=== PATIENT | male | born 1960 | race Caucasian/White ===

== ENCOUNTER 2024-07-06 08:26 | Emergency (ER) | payer OTHER, BC, SELFPAY ==
[2024-07-06 08:42] VITALS: BP 158/99; PULSE 67; RESP 16; TEMP 36.6; O2SAT 98
[2024-07-06 08:44] VITALS: BP 158/99; PULSE 67; RESP 16; TEMP 36.6; O2SAT 98
--- NOTE | 2024-07-06 08:56 | ED.SKABFB ---
HPI - Skin/Abscess/Foreign Bdy General Chief complaint: Skin/Abscess/Foreign Body Stated complaint: INSECT BITE TO FOREHEAD/KNOT ON NECK Time Seen by Provider: 07/06/24 08:49 Source: patient and RN notes reviewed Mode of arrival: ambulatory Limitations: no limitations History of Present Illness HPI narrative: Patient presents today complaining of a possible insect bite to his right upper forehead that was sustained 5 days ago. This area has become more red and swollen. The swelling has extended to his right upper eyelid. His soreness has extended down his right lateral cheek. He is also noted a knot on his right neck. Related Data Home Medications Medication Instructions Recorded Confirmed amlodipine 10 mg tablet 10 mg PO DAILY 07/06/24 07/06/24 aspirin 81 mg chewable tablet 81 mg PO DAILY 07/06/24 07/06/24 lisinopril 40 mg tablet 40 mg PO DAILY 07/06/24 07/06/24 rosuvastatin 40 mg tablet 40 mg PO DAILY 07/06/24 07/06/24 sertraline 50 mg tablet 50 mg PO DAILY 07/06/24 07/06/24 Allergies Allergy/AdvReac Type Severity Reaction Status Date / Time No Known Drug Allergies Allergy Unknown Unverified 04/02/15 17:40 Review of Systems Review of Systems: CONSTITUTIONAL: Denies body aches, fever, chills, or sweats. EYES: Denies visual changes, redness, or discharge. ENT: Denies rhinorrhea, congestion, sore throat, or otalgia. CARDIOVASCULAR: Denies chest pain, palpitations, or edema. RESPIRATORY: Denies cough or dyspnea. GASTROINTESTINAL: Denies abdominal pain, nausea, vomiting, or diarrhea. GENITOURINARY: Denies dysuria or hematuria. SKIN: Insect bite MUSCULOSKELETAL: Denies back pain, joint pain, or myalgia. NEUROLOGIC: Denies headache, numbness, tingling, or weakness. PSYCH: Denies depression or anxiety. PMFSH Comments At time of signature, I have reviewed and agree with nursing past medical, surgical, social and family history unless otherwise noted. Please see nursing chart for further information. There is no relevant family history pertinent to the presenting complaint Exam Narrative: GENERAL: Well-appearing, well-nourished, and in no acute distress. HEAD: Normocephalic, atraumatic. 4x4 cm square area of moderate erythema and induration to the right upper forehead. No fluctuance. EYES: EOMI. No redness or drainage. Conjunctivae normal. Mild swelling to right upper eyelid. ENT: Mucous membranes pink and moist. Throat normal. Uvula midline. NECK: Normal AROM. Tender, palpable lymph node to right posterior cervical chain. CHEST: No respiratory distress. EXTREMITIES: Normal range of motion. No edema. SKIN: Warm, dry, no rash. Capillary refill normal. Normal skin turgor. NEURO: No focal deficits. Alert and oriented x3. Gait steady. PSYCH: Normal affect. No signs of depression or anxiety. Course Course Level of Care: Express Care Visit Vital Signs Vital signs: Vital Signs Temperature 97.8 F 07/06/24 08:42 Pulse Rate 67 07/06/24 08:42 Respiratory Rate 16 07/06/24 08:42 Blood Pressure 158/99 H 07/06/24 08:42 Pulse Oximetry 98 07/06/24 08:42 Temperature 97.8 F 07/06/24 08:44 Pulse Rate 67 07/06/24 08:44 Respiratory Rate 16 07/06/24 08:44 Blood Pressure 158/99 H 07/06/24 08:44 Pulse Oximetry 98 07/06/24 08:44 Reviewed MDM - Skin/Abscess/Foreign Bdy MDM Narrative Medical decision making narrative: Patient's symptoms are due to cellulitis due to insect bite. Patient will be placed on Keflex and prednisone. Anticipatory guidance given. Differential Diagnosis Differential diagnosis: Likely abscess of skin or subcutaneous tissue, cellulitis, insect bites, impetigo and contact dermatitis Critical Care Time Critical Care Time Critical Care Time: No Discharge Plan Discharge Clinical Impression: Cellulitis of forehead Insect bite Qualifiers: Encounter type: initial encounter Site of insect bite: head Site of insect bite of head: scalp Qualified Code
== END 2024-07-06 09:03 | disposition home or self-care (01) ==
PROVIDERS: Emergency Provider Nurse Practitioner; PCP Family Medicine
DX: L03.211 Cellulitis of face (principal); S00.06XA Insect bite (nonvenomous) of scalp, initial encounter; W57.XXXA Bitten or stung by nonvenomous insect and other nonvenomous arthropods, initial encounter; E78.00 Pure hypercholesterolemia, unspecified; I10 Essential (primary) hypertension; Z95.5 Presence of coronary angioplasty implant and graft
CPT/HCPCS: 99203; G0463

== ENCOUNTER 2024-10-02 12:27 | Emergency (ER) | payer BC, SELFPAY ==
[2024-10-02 12:59] VITALS: BP 160/84; PULSE 70; RESP 16; TEMP 36.6; O2SAT 100
--- NOTE | 2024-10-02 13:53 | ED.ABDPAIN ---
HPI - Abdominal Pain General Chief Complaint: Abdominal Pain Stated Complaint: Left Side Pain Source: patient Mode of arrival: ambulatory Limitations: no limitations History of Present Illness HPI narrative: Patient presents for evaluation of left inguinal and left lower quadrant pain. Symptom onset about ten days ago. His symptoms were preceded by respiratory symptoms including congestion and cough. Those symptoms resolved. He states he then noted intermittent pain in the left inguinal/LLQ region. Pain is more noticeable with ambulation and physical activity. He initially thought that he strained a muscle during a coughing episode however his pain has persisted. He describes the pain is sensation that he was kicked in the scrotum. He denies testicular pain per se. No urinary symptoms. He has experienced some abnormalities in bowel pattern. He has normal bowel pattern is once daily. He has experienced fecal urgency with decrease in the amount of stool with bowel movements. He has not noticed any blood/mucous in the stool, nausea, vomiting, diarrhea, fevers or chills. He has never had a colonoscopy. Related Data Home Medications ?Medication ?Instructions ?Recorded ?Confirmed ?Last Taken ?Type amlodipine 10 mg tablet 10 mg PO DAILY 07/06/24 07/06/24 Unknown History aspirin 81 mg chewable tablet 81 mg PO DAILY 07/06/24 07/06/24 Unknown History lisinopril 40 mg tablet 40 mg PO DAILY 07/06/24 07/06/24 Unknown History rosuvastatin 40 mg tablet 40 mg PO DAILY 07/06/24 07/06/24 Unknown History sertraline 50 mg tablet 50 mg PO DAILY 07/06/24 07/06/24 Unknown History Allergies Allergy/AdvReac Type Severity Reaction Status Date / Time No Known Drug Allergies Allergy Unknown Other Verified 10/02/24 13:12 Review of Systems Review of Systems: CONSTITUTIONAL: Denies fever, chills, or sweats. EYES: Denies visual changes, redness, or discharge. ENT: Denies rhinorrhea, congestion, sore throat, or otalgia. CARDIOVASCULAR: Denies chest pain, palpitations, or edema. RESPIRATORY: Denies cough or dyspnea. GASTROINTESTINAL: Reports left lower quadrant pain, fecal urgency and decreased amount of stool with bowel movements GENITOURINARY: Reports sensation that he was kicked in the scrotum. Denies dysuria or hematuria. SKIN: Denies rash or itching. MUSCULOSKELETAL: Reports pain in left inguinal region. NEUROLOGIC: Denies headache, numbness, dizziness, or weakness. PSYCHIATRIC: Denies anxiety or depression. [facility] Past Medical History Medical History No pertinent past medical history Surgical History Surgical History No pertinent past surgical history Family History Family History Mother Family history non-contributory Social History Social History Smoking status: Never smoker Substance use: never Living arrangements: with family Gender identity (if verbalized by the patient): Male Spiritual care concerns: No Exam Narrative: GENERAL: Well-appearing, well-nourished, and in no acute distress. HEAD: Normocephalic, atraumatic. EYES: PERRLA and EOMI. ENT: Nares clear, no rhinorrhea or epistaxis. Mucous membranes moist. Oropharynx without tonsillar hypertrophy exudate or other lesions. Bilateral TMs pearly torres nonbulging NECK: Supple. No adenopathy or masses. No carotid bruits or JVD CHEST: Clear to auscultation. No respiratory distress. No wheezes rales or rhonchi HEART: Regular rate and rhythm. No murmur heard. Normal peripheral pulses. ABDOMEN: Soft, nontender, nondistended, normal active bowel sounds. EXTREMITIES: Normal range of motion. No edema. GENITAL: No external genital lesions. No testicular tenderness SKIN: Warm, dry, no rash. NEURO: No focal deficits. Alert and oriented x3. PSYCH: Normal mood and affect. Course Course Emergency Course: This is a 64-year-old male who presented for evaluation of left inguinal pain in left lower quadrant pain. Given his recent abnormal bowel movements, one consideration would be for diverticulitis. He does not have any testicular tenderness on exam. I recommended he be transferred to the hospital for further workup and he is in agreement with this plan. [facility] is his facility [facility]. I contacted [facility] and spoke with Dr Cox, who agrees to accept pt for transfer there. Patient was in agreement with plan of care, including plans for transfer. Patient transferred via private vehicle. Level of Care: Express Care Visit Vital Signs Vital signs: Vital Signs Temperature 36.6 C 10/02/24 12:59 Pulse Rate 70 10/02/24 12:59 Respiratory Rate 16 10/02/24 12:59 Blood Pressure 160/84 H 10/02/24 12:59 Pulse Oximetry 100 10/02/24 12:59 Temperature 36.6 C 10/02/24 12:59 Pulse Rate 70 10/02/24 12:59 Respiratory Rate 16 10/02/24 12:59 Blood Pressure 160/84 H 10/02/24 12:59 Pulse Oximetry 100 10/02/24 12:59 MDM - Abdominal Pain Lab Data Labs: Lab Results 10/02/24 Range/Units 13:53 POC Urine Color Yellow POC Urine Clarity Clear POC Urine pH 5.5 POC Ur Specif [place] 1.025 POC Urine Protein Negative (Negative) POC Ur Glucose (UA) Negative (Negative) POC Urine Ketones Negative (Negative) POC Urine Blood Negative (Negative) POC Urine Nitrite Negative (Negative) POC Urine Bilirubin Negative (Negative) POC Urine Urobilinogen 0.2 POC U Leukocyte Esteras Negative (Negative) Discharge Plan Discharge Clinical Impression: Left lower quadrant abdominal pain Patient Disposition: Acute Care Hospital Condition: Stable Instructions: Abdominal Pain (ED) Patient Language: Polish Prescriptions: No Action amlodipine 10 mg tablet 10 mg PO DAILY lisinopril 40 mg tablet 40 mg PO DAILY sertraline 50 mg tablet 50 mg PO DAILY rosuvastatin 40 mg tablet 40 mg PO DAILY aspirin 81 mg Tablet,Chewable 81 mg PO DAILY Follow-up/Referrals: Gabriel,Derik May MD [Primary Care Provider] - Time of Disposition: 13:53
[2024-10-02 13:55] LABS: EDUAAPPEAR Clear; EDUABILI Negative (Negative); EDUABLOOD Negative (Negative); EDUACOLOR1 Yellow; EDUAGLUCOSE Negative (Negative); EDUAKETONE Negative (Negative); EDUALEUKO Negative (Negative); EDUANITRATE Negative (Negative); EDUAPH 5.5; EDUAPROTEIN Negative (Negative); EDUASPGRAVITY 1.025; EDUAUROBILI 0.2
== END 2024-10-02 13:45 | disposition short-term general hospital (02) ==
PROVIDERS: Emergency Provider Nurse Practitioner; PCP Family Medicine
DX: R10.32 Left lower quadrant pain (principal); Z79.82 Long term (current) use of aspirin
CPT/HCPCS: 81003; 99212; G0463

== ENCOUNTER 2024-10-02 14:29 | Observation (INO) | payer BC, SELFPAY ==
--- NOTE | ~2024-10-02 | CT_ITS ---
EXAMINATION: CT abdomen pelvis w con DATE: 10/02/2024 17:51 INDICATION: Left lower quadrant abdominal pain TECHNIQUE: Computed tomography (CT) of the abdomen and pelvis was performed with 100 CC Omnipaque 350 intravenous contrast. Automated exposure control and iterative reconstruction technique were employe d. Exam dose: 837.56 mGy-cm total exam DLP. COMPARISON: None. FINDINGS: Focal linear atelectasis or scar of the medial segment of the middle lobe and minimal bilat eral mild dependent linear atelectasis. No consolidation at the lung bases. Normal heart size. No pericardial or pleural effusion. No hepatic, splenic, pancreatic, adrenal space-occupying mass lesions. The gallbladder appears normal. No bile duct or pancreatic duct dilatation. There are multiple bilateral renal cysts, the largest an exophytic cyst at the lower pole left kidney measuring up to approximately 2.5 cm. No urinary tract calculus or hydroureteronephrosis. There is nonspecific fat stranding along the left ureter in the left lower quadrant of the abdomen, b eginning at approximately the L5 level. There is soft tissue thickening along the left rectosigmoid junction, raising concern for possible ne oplasm. There is bilateral pelvic lymphadenopathy, with right internal iliac node measuring up to 1.6 x 2.2 cm, left external iliac lymphadenopathy medial to 1.8 x 3 cm. There is left periaortic lymphad enopathy, measuring up to 2.1 x 2.8 cm, bilateral common iliac lymphadenopathy, measuring up to 2.4 x 2.5 cm on the left. Diverticulosis of the left colon; no CT evidence of diverticulitis Normal appendix. Bilateral fat-containing inguinal hernias. Very small fat-containing umbilical hernia. No suspicious osteolytic or osteoblastic lesions. IMPRESSION: Rectosigmoid soft tissue thickening with bilateral internal iliac, common iliac and adriano aortic lymphadenopathy. 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 Nonspecific inflammatory change along the distal left ureter; no urinary tract calculus or hydrourete ronephrosis Bilateral renal cysts Normal appendix Diverticulosis of the colon Bilateral small fat-containing inguinal hernias Reviewed, dictated and finalized at [facility] Reviewed, dictated and finalized at [facility] ESTIM[facility] IMPRESSION: Rectosigmoid soft tissue thickening with bilateral internal iliac, common iliac and periaortic lymphadenopathy. Rectosigmoid carcinoma with metas tatic lymphadenopathy is suspected. Nonspecific inflammatory change along the distal left ureter; no urinary tract calculus or hydroureteronephrosis Bilateral renal cysts Normal appendix Diverticulosis of the colon Bilateral small fat-containing inguinal hernias
[2024-10-02 14:43] VITALS: BP 177/84; PULSE 58; RESP 17; TEMP 36.6; O2SAT 100
[2024-10-02 14:44] LABS: Add Urine Microscopic? NO; Appearance Urine Clear (Clear); Bilirubin Urine Negative (Negative); Blood Urine Negative (Negative); Color Urine Yellow (Yellow); Glucose Urine UA Negative (Negative); Ketones Urine Negative (Negative); Leukocyte Esterase Ur Negative LEU/UL (Negative); Nitrate Urine Negative (Negative); Protein Urine Negative (Negative); Specific Grav Ur 1.009 (1.001-1.035); Urobilinogen Urine 0.2 mg/dL (<2.0)
[2024-10-02] MEDS: KETOROLAC 15 MG/ML VIAL (*BKC) IV PUSH (16:25)
[2024-10-02 16:26] VITALS: BP 128/85; PULSE 70; RESP 16; O2SAT 98
--- NOTE | 2024-10-02 16:30 | ED_ITS ---
HPI - General Adult General Chief complaint: Abdominal Pain Stated complaint: LLQ pain Time Seen by Provider: 10/02/24 15:54 History of Present Illness HPI narrative: Patient is a 64-year-old male who presents ER with left lower quadrant abdominal pain. Pulling sensation going into the groin. No urinary frequency urgency or dysuria. No hematuria. No diarrhea or constipation. Denies any known trauma. Was preceded by a viral infection. Symptoms are better with rest and worse with ambulation. Related Data Home Medications ?Medication ?Instructions ?Recorded ?Confirmed ?Last Taken ?Type amlodipine 10 mg tablet 10 mg PO DAILY 07/06/24 07/06/24 Unknown History aspirin 81 mg chewable tablet 81 mg PO DAILY 07/06/24 07/06/24 Unknown History lisinopril 40 mg tablet 40 mg PO DAILY 07/06/24 07/06/24 Unknown History rosuvastatin 40 mg tablet 40 mg PO DAILY 07/06/24 07/06/24 Unknown History sertraline 50 mg tablet 50 mg PO DAILY 07/06/24 07/06/24 Unknown History Allergies Allergy/AdvReac Type Severity Reaction Status Date / Time No Known Drug Allergies Allergy Unknown Other Verified 10/02/24 13:12 Review of Systems 2 Review of Systems: All systems reviewed & are unremarkable except as noted in HPI and below Constitutional: Constitutional: Reports no additional constitutional complaints ENT: Reports system reviewed and no additional complaints, except as documented Cardiovascular: Cardiovascular: Reports no additional cardiovascular complaints Respiratory: Respiratory: Reports no additional respiratory complaints Gastrointestinal: Gastrointestinal: Reports abdominal pain, Denies diarrhea, Denies nausea and Denies vomiting Genitourinary: Genitourinary: Reports no additional male genitourinary complaints [facility] Past Medical History Medical History No pertinent past medical history Surgical History Surgical History No pertinent past surgical history Family History Family History Mother Family history non-contributory Social History Social History Smoking status: Never smoker Substance use: never Living arrangements: with family Gender identity (if verbalized by the patient): Male Spiritual care concerns: No Exam 2 Narrative: GENERAL: Well-appearing, well-nourished, and in no acute distress. HEAD: Normocephalic, atraumatic. ENT: Mucous membranes moist. CHEST: Clear to auscultation. No respiratory distress. HEART: Regular rate and rhythm. Normal peripheral pulses. ABDOMEN: Soft, mild tenderness left lower quadrant without guarding, nondistended. EXTREMITIES: Normal range of motion. No edema. SKIN: Warm, dry, no rash. NEURO: Alert and oriented x3. PSYCH: Normal mood and affect. Course Course Emergency Course: Patient resting comfortably. Informed of imaging results. Discussed case with GI who recommends admission for observation and bowel prep so he can perform colonoscopy tomorrow. Vital Signs Vital signs: Vital Signs Temperature 98 F 10/02/24 14:43 Pulse Rate 58 L 10/02/24 14:43 Respiratory Rate 17 10/02/24 14:43 Blood Pressure 177/84 H 10/02/24 14:43 Pulse Oximetry 100 10/02/24 14:43 Oxygen Delivery Room Air 10/02/24 14:43 Temperature 98 F 10/02/24 14:43 Pulse Rate 70 10/02/24 16:26 Respiratory Rate 16 10/02/24 16:26 Blood Pressure 128/85 10/02/24 16:26 Pulse Oximetry 98 10/02/24 16:26 Oxygen Delivery Room Air 10/02/24 14:43 Medical Decision Making Vital Signs Vital Signs: Vital Signs Temperature 98 F 10/02/24 14:43 Pulse Rate 58 L 10/02/24 14:43 Respiratory Rate 17 10/02/24 14:43 Blood Pressure 177/84 H 10/02/24 14:43 Pulse Oximetry 100 10/02/24 14:43 Oxygen Delivery Room Air 10/02/24 14:43 Temperature 98 F 10/02/24 14:43 Pulse Rate 70 10/02/24 16:26 Respiratory Rate 16 10/02/24 16:26 Blood Pressure 128/85 10/02/24 16:26 Pulse Oximetry 98 10/02/24 16:26 Oxygen Delivery Room Air 10/02/24 14:43 Lab Data 10/02/24 16:28 10/02/24 16:28 Labs: Lab Results 10/02/24 10/02/24 Range/Units 14:37 16:28 WBC 8.8 (4.5-10.0) K/mm3 RBC 4.67 (4.6-6.20) M/mm3 Hgb 13.8 L (14.0-18.0) g/dL Hct 41.1 L (42.0-52.0) % MCV 88.0 (80-100) fl MCH 29.6 (26-34) pg MCHC 33.6 (32-36) g/dl RDW 12.8 (11.5-14.5) % Plt Count 294 (150-375) k/mm3 MPV 9.6 (7.4-10.4) fl Immature Gran % (Auto) 0.2 (0-0.5) % Neut % (Auto) 57.5 (45.5-73.1) % Lymph % (Auto) 31.4 (18.3-44.2) % [place] % (Auto) 8.8 H (2.6-8.5) % Eos % (Auto) 1.8 (0-4.4) % Baso % (Auto) 0.3 (0.2-1.2) % Lymph # (Auto) 2.75 (0.9-3.2) K/mm3 [place] # (Auto) 0.8 H (0.1-0.6) K/mm3 Eos # (Auto) 0.2 (0-0.3) K/mm3 Baso # (Auto) 0.0 (0.0-0.1) K/mm3 Abs Immat Gran (auto) 0.02 (0.00-0.031) K/mm3 Absolute Neuts (auto) 5.0 (1.3-6.7) K/mm3 Absolute Nucleated RBC 0.000 (0.0-0.012) K/mm3 Nucleated RBC % 0.0 (0.0-0.2) % Sodium 139 (137-145) mmol/L Potassium 3.8 (3.4-5.0) mmol/L Chloride 107 (98-107) mmol/L Carbon Dioxide 29 (22-30) mmol/L Anion Gap 3 L (4-12) mmol/L BUN 15 (9-20) mg/dL Creatinine 0.80 (0.7-1.3) mg/dL Estim Creat Clear Calc 91 ml/min Estimated GFR > 60 (59 - ) Glucose 101 (65-110) mg/dL Calcium 9.0 (8.4-10.2) mg/dL Total Bilirubin 0.4 (0.2-1.3) mg/dL AST 31 (17-59) U/L ALT 26 (6-50) U/L Alkaline Phosphatase 59 (38-126) U/L Total Protein 7.0 (6.3-8.2) g/dL Albumin 4.0 (3.5-5.1) g/dL Lipase 77 (23-300) U/L Urine Color Yellow (Yellow) Urine Appearance Clear (Clear) Urine pH 5.0 (5.0-9.0) Ur Specific [place] 1.009 (1.001-1.035) Urine Protein Negative (Negative) mg/dL Urine Glucose (UA) Negative (Negative) mg/dL Urine Ketones Negative (Negative) mg/dL Ur Blood (Man) Negative (Negative) Urine Nitrate Negative (Negative) Urine Bilirubin Negative (Negative) Urine Urobilinogen 0.2 (<2.0) mg/dL Leukocyte Esterase Rfl Negative (Negative) TRACY/UL Imaging Data Radiologist's impression: ITS Impressions Abdomen/Pelvis CT 10/02/24 18:04 IMPRESSION: Rectosigmoid soft tissue thickening with bilateral internal iliac, common iliac and periaortic lymphadenopathy. 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 Nonspecific inflammatory change along the distal left ureter; no urinary tract calculus or hydroureteronephrosis Bilateral renal cysts Normal appendix Diverticulosis of the colon Bilateral small fat-containing inguinal hernias Discharge Plan Discharge Clinical Impression: Rectal mass Patient Disposition: Still a Patient Condition: Stable Patient Language: Vietnamese Prescriptions: No Action amlodipine 10 mg tablet 10 mg PO DAILY lisinopril 40 mg tablet 40 mg PO DAILY sertraline 50 mg tablet 50 mg PO DAILY rosuvastatin 40 mg tablet 40 mg PO DAILY aspirin 81 mg Tablet,Chewable 81 mg PO DAILY Follow-up/Referrals: Gabriel,Derik May MD [Primary Care Provider] -
[2024-10-02 16:44] LABS: Basophils Percent Auto 0.3 % (0.2-1.2); Eosinophils Absolute Auto 0.2 K/mm3 (0-0.3); Eosinophils Percent Auto 1.8 % (0-4.4); Hematocrit 41.1 % (42.0-52.0); Hemoglobin 13.8 g/dL (14.0-18.0); Immature Granulocyte Absolute 0.02 K/mm3 (0.00-0.031); Immature Granulocyte Percent A 0.2 % (0-0.5); Lymphocytes Absolute Auto 2.75 K/mm3 (0.9-3.2); Lymphocytes Percent Auto 31.4 % (18.3-44.2); Mean Corpuscular HGB Conc 33.6 g/dl (32-36); Mean Corpuscular Hemoglobin 29.6 pg (26-34); Mean Platelet Volume 9.6 fl (7.4-10.4); Monocytes Absolute Auto 0.8 K/mm3 (0.1-0.6); Monocytes Percent Auto 8.8 % (2.6-8.5); Neutrophils Percent Auto 57.5 % (45.5-73.1); Platelet Count Result 294 k/mm3 (150-375); Red Blood Count 4.67 M/mm3 (4.6-6.20); Red Cell Distribution Width 12.8 % (11.5-14.5); White Blood Count 8.8 K/mm3 (4.5-10.0)
[2024-10-02 16:53] LABS: Alanine Aminotransferase 26 U/L (6-50); Alkaline Phosphatase 59 U/L (38-126); Anion Gap 3 mmol/L (4-12); Aspartate Amino Transferase 31 U/L (17-59); Bilirubin,Total 0.4 mg/dL (0.2-1.3); Blood Urea Nitrogen 15 mg/dL (9-20); Carbon Dioxide 29 mmol/L (22-30); Chloride 107 mmol/L (98-107); Estimated CRCL calculation 91 ml/min; Estimated Glomerular Filt Rate > 60; Glucose 101 mg/dL (65-110); Lipase 77 U/L (23-300); Potassium 3.8 mmol/L (3.4-5.0); Sodium 139 mmol/L (137-145)
--- NOTE | 2024-10-02 19:32 | PM.IMHP ---
H&P: HPI History of Present Illness Date/Time: 10/02/24 19:32 Chief Complaint: Left lower quadrant pain Narrative: This is a 64-year-old male with past medical history significant for dyslipidemia, obesity, hypertension. Patient presents to the emergency room due to left lower quadrant pain sudden onset, patient denies any melena, hematochezia, hematemesis, coffee-ground emesis, weight loss, constipation, changes in stool character. Has been his usual state of health up until this point. EXAMINATION: CT abdomen pelvis w con DATE: 10/02/2024 17:51 INDICATION: Left lower quadrant abdominal pain TECHNIQUE: Computed tomography (CT) of the abdomen and pelvis was performed with 100 CC Omnipaque 350 intravenous contrast. Automated exposure control and iterative reconstruction technique were employed. Exam dose: 837.56 mGy-cm total exam DLP. COMPARISON: None. FINDINGS: Focal linear atelectasis or scar of the medial segment of the middle lobe and minimal bilateral mild dependent linear atelectasis. No consolidation at the lung bases. Normal heart size. No pericardial or pleural effusion. No hepatic, splenic, pancreatic, adrenal space-occupying mass lesions. The gallbladder appears normal. No bile duct or pancreatic duct dilatation. There are multiple bilateral renal cysts, the largest an exophytic cyst at the lower pole left kidney measuring up to approximately 2.5 cm. No urinary tract calculus or hydroureteronephrosis. There is nonspecific fat stranding along the left ureter in the left lower quadrant of the abdomen, beginning at approximately the L5 level. There is soft tissue thickening along the left rectosigmoid junction, raising concern for possible neoplasm. There is bilateral pelvic lymphadenopathy, with right internal iliac node measuring up to 1.6 x 2.2 cm, left external iliac lymphadenopathy medial to 1.8 x 3 cm. There is left periaortic lymphadenopathy, measuring up to 2.1 x 2.8 cm, bilateral common iliac lymphadenopathy, measuring up to 2.4 x 2.5 cm on the left. Diverticulosis of the left colon; no CT evidence of diverticulitis Normal appendix. Bilateral fat-containing inguinal hernias. Very small fat-containing umbilical hernia. No suspicious osteolytic or osteoblastic lesions. IMPRESSION: Rectosigmoid soft tissue thickening with bilateral internal iliac, common iliac and periaortic lymphadenopathy. 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 Nonspecific inflammatory change along the distal left ureter; no urinary tract calculus or hydroureteronephrosis Bilateral renal cysts Normal appendix Diverticulosis of the colon Bilateral small fat-containing inguinal hernias Review of Systems Review of Systems: A patient presents to the emergency room with left lower quadrant pain PMFSH Past Medical History Medical History No pertinent past medical history Surgical History Surgical History No pertinent past surgical history Family History Family History Mother Family history non-contributory Social History Social History Smoking status: Never smoker Alcohol intake: never Substance use: never Do You Feel Safe in your Home?: Yes Lack of Transportation: No Lack of Food: Never True Current Housing: I Have Housing Concerned About Future Housing: No Difficulty Paying Gas/Electric Bills: No Difficulty Paying for Meds: No Currently Unemployed: No Education: High School Diploma/GED Difficulty w/ Childcare or Family Care: No Living arrangements: with family Gender identity (if verbalized by the patient): Male Spiritual care concerns: No Meds Home Medications and Allergies Home Medications ?Medication ?Instructions ?Recorded ?Confirmed ?Type amlodipine 10 mg tablet 10 mg PO QHS 07/06/24 10/02/24 History aspirin 81 mg chewable tablet 81 mg PO QHS 07/06/24 10/02/24 History lisinopril 40 mg tablet 40 mg PO QHS 07/06/24 10/02/24 History rosuvastatin 40 mg tablet 40 mg PO QHS 07/06/24 10/02/24 History sertraline 50 mg tablet 50 mg PO QHS 07/06/24 10/02/24 History omega 7-oll-eup-fish oil 1,000 mg 1 cap PO BID 10/02/24 10/02/24 History (120 mg-180 mg) capsule (Fish Oil) Allergies Allergy/AdvReac Type Severity Reaction Status Date / Time No Known Drug Allergies Allergy Unknown Other Verified 10/02/24 13:12 Vital Signs Vital Signs - 24 hr 10/02/24 14:43 10/02/24 16:26 Temperature 98 F Pulse Rate 58 L 70 Respiratory Rate 17 16 Blood Pressure 177/84 H 128/85 Pulse Oximetry 100 98 Oxygen Delivery Room Air Exam Narrative: Patient is sitting in chair Const: General: comfortable, no acute distress, well developed, alert, awake and average body habitus Nutritional Appearance: average body habitus Orientation/consciousness: patient oriented x3 Other: Patient prepping with GoLYTELY HENMT: Head: normal to inspection, normocephalic and atraumatic Ears: hearing grossly normal bilaterally Face/Nose/Sinus: normal facial exam Face and sinus: normal facial exam Eyes: General: appearance normal, both eyes and all related structures Pupils: Equal, round and reactive pupils present EOM: EOMs intact bilaterally Neck: Neck: full ROM, no lymphadenopathy and no JVD Thyroid: thyroid normal Lymphatic: no lymphadenopathy noted Resp: Effort & Inspection: normal respiratory effort and able to speak in complete sentences Auscultation: clear to auscultation bilaterally Cardio: Jugular venous distension: no JVD Rate: regular rate Rhythm: regular rhythm Heart sounds: S1 normal heart sound present and S2 normal heart sound present GI: GI Palp: Yes Soft to palpation and Yes No hepatosplenomegaly present : General: Yes deferred Skin: Rashes: no rashes Wounds: no wounds Neuro: General: patient oriented x3 and CN's II-XI intact bilaterally Cranial nerves: Yes CN's II-XII intact bilaterally and Yes Equal, round and reactive pupils present Cognition (Neuro): normal cognition Speech: normal speech Gait exam (Neuro): Normal gait present Motor exam (neuro): 5/5 motor strength present throughout Extrem: General: normal to inspection, full ROM, no joint enlargement and no pedal edema H&P: Results Labs Labs: Short CBC 10/02/24 Range/Units 16:28 WBC 8.8 (4.5-10.0) K/mm3 Hgb 13.8 L (14.0-18.0) g/dL Hct 41.1 L (42.0-52.0) % Plt Count 294 (150-375) k/mm3 BMP 10/02/24 16:28 Sodium 139 Potassium 3.8 Chloride 107 Carbon Dioxide 29 BUN 15 Creatinine 0.80 Glucose 101 Calcium 9.0 Liver Function 12/22/24 Range/Units 16:28 Total Bilirubin 0.4 (0.2-1.3) mg/dL AST 31 (17-59) U/L ALT 26 (6-50) U/L Alkaline Phosphatase 59 (38-126) U/L Albumin 4.0 (3.5-5.1) g/dL Urine 10/02/24 Range/Units 14:37 Urine Color Yellow (Yellow) Urine Appearance Clear (Clear) Urine pH 5.0 (5.0-9.0) Ur Specific [place] 1.009 (1.001-1.035) Urine Protein Negative (Negative) mg/dL Urine Glucose (UA) Negative (Negative) mg/dL Assessment and Plan Assessment and plan (1) Rectal mass: Code(s): K62.89 - Other specified diseases of anus and rectum Status: Acute Assessment and Plan: Admit to regular medical floor Patient undergoing colon prep for colonoscopy in the morning Supportive care (2) Left lower quadrant abdominal pain: Code(s): R10.32 - Left lower quadrant pain Status: Inactive Assessment and Plan: Supportive care CT abdomen and pelvis reviewed (3) Hypertension: Code(s): I10 - Essential (primary) hypertension Status: Acute Assessment and Plan: Resume amlodipine and lisinopril Hospitalist MIPS Advance Care Plan I have confirmed that the patient's Advanced Care Plan is present, code status is documented, or surrogate decision maker is listed in patient medical record.: Yes Medication Reconciliation I have utilized all available resources to obtain, update and review the patients current medications (includes all prescriptions, OTC, herbals, cannabis, and nutritional supplements).: Yes
[2024-10-02] MEDS: PEG (High)/E-LYTE SOLN 4,000 ML BTL 4000 ML PO (19:49)
[2024-10-02 19:58] VITALS: BP 162/98; PULSE 68; RESP 15; O2SAT 100
[2024-10-02 21:28] VITALS: BMI 29.4
--- NOTE | 2024-10-02 21:29 | ADMGEN ---
This patient, Kirk Stokes, was admitted to [facility] Surg Room 319-01. Patient/family oriented to hospital policies and general routines including ID bracelet, bed and alarms, visiting hours, pain management, procedures, bathroom and other care routines, personal items, smoking policy, room service/diet, and visiting hours. Information on how to activate the Rapid Response Team has been discussed. Patient/Family are encouraged to report perceived risks to care and to ask questions if they do not understand what they are told or what they should do.
[2024-10-02 22:00] VITALS: BP 155/74; PULSE 52; RESP 16; TEMP 36.2; O2SAT 100
[2024-10-03] VITALS (11 sets, daily range): BP systolic 86–153; BP diastolic 30–88; PULSE 50–505; RESP 16–19; TEMP 36.1–37; O2SAT 96–100
[2024-10-03 08:20] LABS: Basophils Percent Auto 0.5 % (0.2-1.2); Eosinophils Absolute Auto 0.2 K/mm3 (0-0.3); Hematocrit 40.3 % (42.0-52.0); Hemoglobin 13.6 g/dL (14.0-18.0); Immature Granulocyte Absolute 0.01 K/mm3 (0.00-0.031); Immature Granulocyte Percent A 0.2 % (0-0.5); Lymphocytes Absolute Auto 2.19 K/mm3 (0.9-3.2); Lymphocytes Percent Auto 34.3 % (18.3-44.2); Mean Corpuscular HGB Conc 33.7 g/dl (32-36); Mean Corpuscular Hemoglobin 29.8 pg (26-34); Mean Corpuscular Volume 88.4 fl (80-100); Mean Platelet Volume 9.4 fl (7.4-10.4); Monocytes Absolute Auto 0.6 K/mm3 (0.1-0.6); Monocytes Percent Auto 9.5 % (2.6-8.5); Neutrophils Absolute Auto 3.4 K/mm3 (1.3-6.7); Neutrophils Percent Auto 52.5 % (45.5-73.1); Platelet Count Result 286 k/mm3 (150-375); Red Blood Count 4.56 M/mm3 (4.6-6.20); Red Cell Distribution Width 12.8 % (11.5-14.5); White Blood Count 6.4 K/mm3 (4.5-10.0)
[2024-10-03 08:48] LABS: Alanine Aminotransferase 26 U/L (6-50); Albumin Level 3.8 g/dL (3.5-5.1); Alkaline Phosphatase 64 U/L (38-126); Anion Gap 3 mmol/L (4-12); Aspartate Amino Transferase 35 U/L (17-59); Bilirubin,Total 0.6 mg/dL (0.2-1.3); Blood Urea Nitrogen 13 mg/dL (9-20); Calcium 8.9 mg/dL (8.4-10.2); Carbon Dioxide 30 mmol/L (22-30); Chloride 107 mmol/L (98-107); Estimated CRCL calculation 91 ml/min; Estimated Glomerular Filt Rate > 60; Glucose 102 mg/dL (65-110); Potassium 4.1 mmol/L (3.4-5.0); Sodium 140 mmol/L (137-145)
--- NOTE | 2024-10-03 09:37 | P.PNIM_ITS ---
Progress Note: A&P Assessment and Plan (1) Rectal mass: Code(s): K62.89 - Other specified diseases of anus and rectum Status: Acute Assessment and Plan: colon prep for colonoscopy today, 10/03 Supportive care (2) Left lower quadrant abdominal pain: Code(s): R10.32 - Left lower quadrant pain Status: Inactive Assessment and Plan: Supportive care CT abdomen and pelvis reviewed MPRESSION: Rectosigmoid soft tissue thickening with bilateral internal iliac, common iliac and periaortic lymphadenopathy. 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 Nonspecific inflammatory change along the distal left ureter; no urinary tract calculus or hydroureteronephrosis Bilateral renal cysts Normal appendix Diverticulosis of the colon Bilateral small fat-containing inguinal hernias (3) Hypertension: Code(s): I10 - Essential (primary) hypertension Status: Acute Assessment and Plan: Resume amlodipine and lisinopril monitor Time Spent With Patient Time with patient: Greater than 35 minutes Subjective Date/time seen: 10/03/24 09:37 Interval history: Left lower quadrant pain This is a 64-year-old male with PMH/o dyslipidemia, obesity, hypertension admitted from ED with left lower quadrant pain sudden onset, patient denies any melena, hematochezia, hematemesis, coffee-ground emesis, weight loss, con stipation, changes in stool character. CT abd/pelvis: MPRESSION: Rectosigmoid soft tissue thickening with bilateral internal iliac, common iliac and periaortic lymphadenopathy. 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 Nonspecific inflammatory change along the distal left ureter; no urinary tract calculus or hydroureteronephrosis Bilateral renal cysts Normal appendix Diverticulosis of the colon Bilateral small fat-containing inguinal hernias 10/03 assuming care- pt is seen and examined. Colonoscopy today. Review of Systems Review of Systems: A patient presents to the emergency room with left lower quadrant pain Exam Narrative: Patient is sitting in chair Const: General: comfortable, no acute distress, well developed, alert, awake and average body habitus Nutritional Appearance: average body habitus Orientation/consciousness: patient oriented x3 Other: Patient prepping with GoLYTELY HENMT: Head: normal to inspection, normocephalic and atraumatic Ears: hearing grossly normal bilaterally Face/Nose/Sinus: normal facial exam Face and sinus: normal facial exam Eyes: General: appearance normal, both eyes and all related structures Pupils: Equal, round and reactive pupils present EOM: EOMs intact bilaterally Neck: Neck: full ROM, no lymphadenopathy and no JVD Thyroid: thyroid normal Lymphatic: no lymphadenopathy noted Resp: Effort & Inspection: normal respiratory effort and able to speak in complete sentences Auscultation: clear to auscultation bilaterally Cardio: Jugular venous distension: no JVD Rate: regular rate Rhythm: regular rhythm Heart sounds: S1 normal heart sound present and S2 normal heart sound present : General: Yes deferred Skin: Rashes: no rashes Wounds: no wounds Neuro: General: patient oriented x3 and CN's II-XI intact bilaterally Cranial nerves: Yes CN's II-XII intact bilaterally and Yes Equal, round and reactive pupils present Cognition (Neuro): normal cognition Speech: normal speech Gait exam (Neuro): Normal gait present Motor exam (neuro): 5/5 motor strength present throughout Extrem: General: normal to inspection, full ROM, no joint enlargement and no pedal edema Objective Data Vital Signs Vital Signs: Vital Signs - 24 hr 10/02/24 14:43 10/02/24 16:26 10/02/24 19:58 Temperature 98 F Pulse Rate 58 L 70 68 Respiratory Rate 17 16 15 Blood Pressure 177/84 H 128/85 162/98 H Pulse Oximetry 100 98 100 Oxygen Delivery Room Air 10/02/24 21:28 10/02/24 22:00 10/03/24 05:46 Temperature 97.2 F L 97.5 F L Pulse Rate 52 L 71 Respiratory Rate 16 16 Blood Pressure 155/74 H 138/79 Pulse Oximetry 100 97 Oxygen Delivery Room Air Intake/Output Intake/Output: Intake & Output 09/30/24 10/01/24 10/02/24 10/03/24 23:59 23:59 23:59 23:59 Intake Total 700 Balance 700 Meds/Results Medications: Active Medications Generic Name Dose Route Start Last Admin Trade Name Freq PRN Reason Stop Dose Admin Ondansetron HCl 4 mg 10/02/24 18:47 Ondansetron Inj 4 Mg/2 Ml Vial IV PUSH Q4H PRN Nausea Radiology Results: ITS Impressions Abdomen/Pelvis CT 10/02/24 18:04 IMPRESSION: Rectosigmoid soft tissue thickening with bilateral internal iliac, common iliac and periaortic lymphadenopathy. 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 Nonspecific inflammatory change along the distal left ureter; no urinary tract calculus or hydroureteronephrosis Bilateral renal cysts Normal appendix Diverticulosis of the colon Bilateral small fat-containing inguinal hernias Labs Labs: Laboratory Results - last 24 hr 10/02/24 10/02/24 10/03/24 14:37 16:28 08:02 WBC 8.8 6.4 RBC 4.67 4.56 L Hgb 13.8 L 13.6 L Hct 41.1 L 40.3 L MCV 88.0 88.4 MCH 29.6 29.8 MCHC 33.6 33.7 RDW 12.8 12.8 Plt Count 294 286 MPV 9.6 9.4 Immature Gran % (Auto) 0.2 0.2 Neut % (Auto) 57.5 52.5 Lymph % (Auto) 31.4 34.3 [place] % (Auto) 8.8 H 9.5 H Eos % (Auto) 1.8 3.0 Baso % (Auto) 0.3 0.5 Lymph # (Auto) 2.75 2.19 [place] # (Auto) 0.8 H 0.6 Eos # (Auto) 0.2 0.2 Baso # (Auto) 0.0 0.0 Abs Immat Gran (auto) 0.02 0.01 Absolute Neuts (auto) 5.0 3.4 Absolute Nucleated RBC 0.000 0.000 Nucleated RBC % 0.0 0.0 Sodium 139 140 Potassium 3.8 4.1 Chloride 107 107 Carbon Dioxide 29 30 Anion Gap 3 L 3 L BUN 15 13 Creatinine 0.80 0.80 Estim Creat Clear Calc 91 91 Estimated GFR > 60 > 60 Glucose 101 102 Calcium 9.0 8.9 Total Bilirubin 0.4 0.6 AST 31 35 ALT 26 26 Alkaline Phosphatase 59 64 Total Protein 7.0 6.0 L Albumin 4.0 3.8 Lipase 77 Urine Color Yellow Urine Appearance Clear Urine pH 5.0 Ur Specific [place] 1.009 Urine Protein Negative Urine Glucose (UA) Negative Urine Ketones Negative Ur Blood (Man) Negative Urine Nitrate Negative Urine Bilirubin Negative Urine Urobilinogen 0.2 Leukocyte Esterase Rfl Negative Quality VTE Prophylaxis VTE prophylaxis: mechanical ordered
[2024-10-03] MEDS: LACTATED RINGERS 1,000 ML 150 ML IV CONT (10:31)
--- NOTE | 2024-10-03 10:40 | P.PNAN_ITS ---
Anes - Initial Pre Proc Eval Procedure: Operation Date: 10/03/24 14:30 Proposed Procedures p Colonoscopy - Maksim Cat MD Date/Time: 10/03/24 10:40 Surgeon: Elias Aguilera MD Pre Op Diagnosis: Rectal mass Patient Data Age: 64 Gender: M Height: 1.83 m Weight: 98.5 kg Last Vital Signs Temp 97.0 F L 10/03/24 10:29 Pulse 62 10/03/24 10:29 Resp 16 10/03/24 10:29 BP 152/88 H 10/03/24 10:29 Pulse Ox 99 10/03/24 10:29 O2 Del Method Room Air 10/03/24 10:29 Allergies Allergy/AdvReac Type Severity Reaction Status Date / Time No Known Drug Allergies Allergy Unknown Other Verified 10/03/24 10:28 Home Medications ?Medication ?Instructions ?Recorded ?Confirmed ?Type amlodipine 10 mg tablet 10 mg PO QHS 07/06/24 10/02/24 History aspirin 81 mg chewable tablet 81 mg PO QHS 07/06/24 10/02/24 History lisinopril 40 mg tablet 40 mg PO QHS 07/06/24 10/02/24 History rosuvastatin 40 mg tablet 40 mg PO QHS 07/06/24 10/02/24 History sertraline 50 mg tablet 50 mg PO QHS 07/06/24 10/02/24 History omega 0-vzh-rzv-fish oil 1,000 mg 1 cap PO BID 10/02/24 10/02/24 History (120 mg-180 mg) capsule (Fish Oil) Laboratory Tests 10/02/24 10/02/24 10/03/24 14:37 16:28 08:02 WBC 8.8 K/mm3 6.4 K/mm3 (4.5-10.0) (4.5-10.0) RBC 4.67 M/mm3 4.56 L M/mm3 (4.6-6.20) (4.6-6.20) Hgb 13.8 L g/dL 13.6 L g/dL (14.0-18.0) (14.0-18.0) Hct 41.1 L % 40.3 L % (42.0-52.0) (42.0-52.0) MCV 88.0 fl 88.4 fl (80-100) (80-100) MCH 29.6 pg 29.8 pg (26-34) (26-34) MCHC 33.6 g/dl 33.7 g/dl (32-36) (32-36) RDW 12.8 % 12.8 % (11.5-14.5) (11.5-14.5) Plt Count 294 k/mm3 286 k/mm3 (150-375) (150-375) MPV 9.6 fl 9.4 fl (7.4-10.4) (7.4-10.4) Immature Gran % (Auto) 0.2 % 0.2 % (0-0.5) (0-0.5) Neut % (Auto) 57.5 % 52.5 % (45.5-73.1) (45.5-73.1) Lymph % (Auto) 31.4 % 34.3 % (18.3-44.2) (18.3-44.2) [place] % (Auto) 8.8 H % 9.5 H % (2.6-8.5) (2.6-8.5) Eos % (Auto) 1.8 % 3.0 % (0-4.4) (0-4.4) Baso % (Auto) 0.3 % 0.5 % (0.2-1.2) (0.2-1.2) Lymph # (Auto) 2.75 K/mm3 2.19 K/mm3 (0.9-3.2) (0.9-3.2) [place] # (Auto) 0.8 H K/mm3 0.6 K/mm3 (0.1-0.6) (0.1-0.6) Eos # (Auto) 0.2 K/mm3 0.2 K/mm3 (0-0.3) (0-0.3) Baso # (Auto) 0.0 K/mm3 0.0 K/mm3 (0.0-0.1) (0.0-0.1) Abs Immat Gran (auto) 0.02 K/mm3 0.01 K/mm3 (0.00-0.031) (0.00-0.031) Absolute Neuts (auto) 5.0 K/mm3 3.4 K/mm3 (1.3-6.7) (1.3-6.7) Absolute Nucleated RBC 0.000 K/mm3 0.000 K/mm3 (0.0-0.012) (0.0-0.012) Nucleated RBC % 0.0 % 0.0 % (0.0-0.2) (0.0-0.2) Sodium 139 mmol/L 140 mmol/L (137-145) (137-145) Potassium 3.8 mmol/L 4.1 mmol/L (3.4-5.0) (3.4-5.0) Chloride 107 mmol/L 107 mmol/L (98-107) (98-107) Carbon Dioxide 29 mmol/L 30 mmol/L (22-30) (22-30) Anion Gap 3 L mmol/L 3 L mmol/L (4-12) (4-12) BUN 15 mg/dL 13 mg/dL (9-20) (9-20) Creatinine 0.80 mg/dL 0.80 mg/dL (0.7-1.3) (0.7-1.3) Estim Creat Clear Calc 91 ml/min 91 ml/min Estimated GFR > 60 > 60 (59 - ) (59 - ) Glucose 101 mg/dL 102 mg/dL (65-110) (65-110) Calcium 9.0 mg/dL 8.9 mg/dL (8.4-10.2) (8.4-10.2) Total Bilirubin 0.4 mg/dL 0.6 mg/dL (0.2-1.3) (0.2-1.3) AST 31 U/L 35 U/L (17-59) (17-59) ALT 26 U/L 26 U/L (6-50) (6-50) Alkaline Phosphatase 59 U/L 64 U/L (38-126) (38-126) Total Protein 7.0 g/dL 6.0 L g/dL (6.3-8.2) (6.3-8.2) Albumin 4.0 g/dL 3.8 g/dL (3.5-5.1) (3.5-5.1) Lipase 77 U/L (23-300) Urine Color Yellow (Yellow) Urine Appearance Clear (Clear) Urine pH 5.0 (5.0-9.0) Ur Specific [place] 1.009 (1.001-1.035) Urine Protein Negative mg/dL (Negative) Urine Glucose (UA) Negative mg/dL (Negative) Urine Ketones Negative mg/dL (Negative) Ur Blood (Man) Negative (Negative) Urine Nitrate Negative (Negative) Urine Bilirubin Negative (Negative) Urine Urobilinogen 0.2 mg/dL (<2.0) Leukocyte Esterase Rfl Negative TRACY/UL (Negative) Patient hx anesthesia problems: none Family hx anesthesia problems: none Results Review: All pre-operative results and documents have been reviewed as part of the pre- operative evaluation. [facility] Past Medical History Medical History No pertinent past medical history Surgical History Surgical History No pertinent past surgical history Family History Family History Mother Family history non-contributory Social History Social History Smoking status: Never smoker Alcohol intake: never Substance use: never Do You Feel Safe in your Home?: Yes Lack of Transportation: No Lack of Food: Never True Current Housing: I Have Housing Concerned About Future Housing: No Difficulty Paying Gas/Electric Bills: No Difficulty Paying for Meds: No Currently Unemployed: No Education: High School Diploma/GED Difficulty w/ Childcare or Family Care: No Living arrangements: with family Gender identity (if verbalized by the patient): Male Spiritual care concerns: No Anes - Eval Final PreProcedure Day of Procedure 10/03/24 10:40 Patient weight: obese Heart: regular rate and rhythm Lungs: clear to auscultation Airway: Mallampati scale class II Neurological: alert and oriented Last oral intake: >/= 8 hours ASA classification: III Emergent: no Anesthetic plan: proceed Anesthesia type and monitoring: general GIVS and standard monitoring Results Review: All pre-operative results and documents have been reviewed as part of the pre- operative evaluation. HTN, hyperlipidemia, BMI 30. Now dx w rectal mass. Informed Consent: The patient's anesthetic plan and its attendant risks and benefits were discussed with the patient/family/POA. Questions were solicited and answers provided to the satisfaction of the patient/family/POA.
--- NOTE | 2024-10-03 10:41 | P.CONGI_ITS ---
Assessment and Plan Assessment and plan (1) Left lower quadrant abdominal pain: Code(s): R10.32 - Left lower quadrant pain Status: Inactive Assessment and Plan: noted abnormal CT scan, probably malignant tumor, he already completed bowel prep and will proceed with colonoscopy now more recommendations after scope (2) Abnormal CT scan, colon: Code(s): R93.3 - Abnormal findings on diagnostic imaging of other parts of digestive tract Status: Acute Assessment and Plan: colonoscopy, ? mass (3) Change in stool caliber: Code(s): R19.5 - Other fecal abnormalities Status: Acute (4) Anemia: Code(s): D64.9 - Anemia, unspecified Status: Acute Assessment and Plan: only mild anemia denies gib GI Consult Note Consult date/time: 10/03/24 10:41 Reason for consult: llq pain, abnormal rectum by ct scan HPI: Kirk Stokes is a 64 year old male with history significant for dyslipidemia, hypertension. Patient presents to the emergency room due to left lower quadrant pain that started 1 week ago, it was intermittent but progressively getting worse, described as pulling sensation going into the groin. No urinary frequency urgency or dysuria. Also recent change in bowel pattern with smaller stool caliber, no blood stools. Never had colonoscopy and denies family history of colon cancer. CT reviewed and noted rectosigmoid soft tissue thickening with bilateral internal iliac, common iliac and periaortic lymphadenopathy. 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 Nonspecific inflammatory change along the distal left ureter; no urinary tract calculus or hydroureteronephrosis. Normal appendix. Diverticulosis of the colon. Hgb 13.6 Review of Systems 2 Constitutional: Constitutional: Denies headache(s) and Denies weakness Eyes: Eyes: Denies blurry vision ENT: Reports Normal hearing present, Denies headache(s) and Denies neck pain Cardiovascular: Cardiovascular: Denies chest pain and Denies dyspnea Respiratory: Respiratory: Denies dyspnea Gastrointestinal: Gastrointestinal: Reports no additional gastrointestinal complaints Genitourinary: Genitourinary: Denies dysuria Musculoskeletal: Musculoskeletal: Denies neck pain Integumentary/Breasts: Skin/Breast: Denies dry skin Neurologic: Reports Normal hearing present, Denies headache(s) and Denies weakness Psychiatric: Psychiatric: Denies anxiety Endocrine: Endocrine: Denies change in body appearance Hematologic/Lymphatic: Hematologic/Lymphatic: Denies easy bleeding Allergic/Immunologic: Allergic/Immunologic: Denies urticaria PMFSH Past Medical History Medical History (Updated 10/03/24 @ 10:45 by Maksim Cat MD) Anemia Change in stool caliber Abnormal CT scan, colon No pertinent past medical history Surgical History Surgical History No pertinent past surgical history Family History Family History Mother Family history non-contributory Social History Social History Smoking status: Never smoker Alcohol intake: never Substance use: never Do You Feel Safe in your Home?: Yes Lack of Transportation: No Lack of Food: Never True Current Housing: I Have Housing Concerned About Future Housing: No Difficulty Paying Gas/Electric Bills: No Difficulty Paying for Meds: No Currently Unemployed: No Education: High School Diploma/GED Difficulty w/ Childcare or Family Care: No Living arrangements: with family Gender identity (if verbalized by the patient): Male Spiritual care concerns: No Meds Home Medications and Allergies Home Medications ?Medication ?Instructions ?Recorded ?Confirmed ?Type amlodipine 10 mg tablet 10 mg PO QHS 07/06/24 10/02/24 History aspirin 81 mg chewable tablet 81 mg PO QHS 07/06/24 10/02/24 History lisinopril 40 mg tablet 40 mg PO QHS 07/06/24 10/02/24 History rosuvastatin 40 mg tablet 40 mg PO QHS 07/06/24 10/02/24 History sertraline 50 mg tablet 50 mg PO QHS 07/06/24 10/02/24 History omega 1-qkl-chi-fish oil 1,000 mg 1 cap PO BID 10/02/24 10/02/24 History (120 mg-180 mg) capsule (Fish Oil) Allergies Allergy/AdvReac Type Severity Reaction Status Date / Time No Known Drug Allergies Allergy Unknown Other Verified 10/03/24 10:28 Vital Signs Vital Signs - 24 hr 10/02/24 14:43 10/02/24 16:26 10/02/24 19:58 Temperature 98 F Pulse Rate 58 L 70 68 Respiratory Rate 17 16 15 Blood Pressure 177/84 H 128/85 162/98 H Pulse Oximetry 100 98 100 Oxygen Delivery Room Air 10/02/24 21:28 10/02/24 22:00 10/03/24 05:46 Temperature 97.2 F L 97.5 F L Pulse Rate 52 L 71 Respiratory Rate 16 16 Blood Pressure 155/74 H 138/79 Pulse Oximetry 100 97 Oxygen Delivery Room Air 10/03/24 10:29 Temperature 97.0 F L Pulse Rate 62 Respiratory Rate 16 Blood Pressure 152/88 H Pulse Oximetry 99 Oxygen Delivery Room Air Exam 2 Const: General: comfortable and no acute distress HENMT: Face/Nose/Sinus: Normal nares present Eyes: General: appearance normal, both eyes and all related structures Neck: Neck: supple Resp: Auscultation: clear to auscultation bilaterally Cardio: Rate: regular rate Rhythm: regular rhythm GI: Inspection: non-distended GI Palp: Yes Soft to palpation and No Tenderness to palpation present (GI) Auscultation: normal bowel sounds Skin: General skin exam: normal color Neuro: Speech: normal speech Motor exam (neuro): 5/5 motor strength present throughout Extrem: General: normal to inspection Psych: Mental Status: mental status grossly normal Results Labs 10/03/24 08:02 10/03/24 08:02 Labs: Short CBC 10/02/24 10/03/24 Range/Units 16:28 08:02 WBC 8.8 6.4 (4.5-10.0) K/mm3 Hgb 13.8 L 13.6 L (14.0-18.0) g/dL Hct 41.1 L 40.3 L (42.0-52.0) % Plt Count 294 286 (150-375) k/mm3 [facility] 10/02/24 10/03/24 16:28 08:02 Sodium 139 140 Potassium 3.8 4.1 Chloride 107 107 Carbon Dioxide 29 30 BUN 15 13 Creatinine 0.80 0.80 Glucose 101 102 Calcium 9.0 8.9 Liver Function 10/02/24 10/03/24 Range/Units 16:28 08:02 Total Bilirubin 0.4 0.6 (0.2-1.3) mg/dL AST 31 35 (17-59) U/L ALT 26 26 (6-50) U/L Alkaline Phosphatase 59 64 (38-126) U/L Albumin 4.0 3.8 (3.5-5.1) g/dL Urine 10/02/24 Range/Units 14:37 Urine Color Yellow (Yellow) Urine Appearance Clear (Clear) Urine pH 5.0 (5.0-9.0) Ur Specific [place] 1.009 (1.001-1.035) Urine Protein Negative (Negative) mg/dL Urine Glucose (UA) Negative (Negative) mg/dL
[2024-10-03] MEDS: OMEGA 3 POLYUNSAT FATTY ACIDS 1 GM CAP PO (17:01)
[2024-10-03] MEDS: ROSUVASTATIN 20 MG TABLET 40 MG PO (20:44)
[2024-10-03] MEDS: lisinopriL 20 MG TABLET 40 MG PO (20:44)
[2024-10-03] MEDS: amLODIPine BESYLATE 10 MG TABLET PO (20:45)
[2024-10-03] MEDS: SERTRALINE HCL 50 MG TABLET PO (20:45)
[2024-10-03] MEDS: ASPIRIN 81 MG CHEWABLE TABLET PO (20:45)
[2024-10-04 05:11] VITALS: BP 126/73; PULSE 78; RESP 16; TEMP 36.8; O2SAT 97
[2024-10-04] MEDS: OMEGA 3 POLYUNSAT FATTY ACIDS 1 GM CAP PO (08:55)
--- NOTE | 2024-10-04 10:31 | PM.DS ---
DS: Admitting Diagnosis Discharge Date 10/04 Admitting Diagnosis lower abd pain DS: Discharge Diagnosis Discharge Diagnosis (1) Rectal mass: Code(s): K62.89 - Other specified diseases of anus and rectum Status: Acute Assessment and Plan: (2) Left lower quadrant abdominal pain: Code(s): R10.32 - Left lower quadrant pain Status: Inactive (3) Hypertension: Code(s): I10 - Essential (primary) hypertension Status: Acute Assessment and Plan: Resume amlodipine and lisinopril monitor DS: Summary Hospital Course Hospital Course: This is a 64-year-old male with past medical history significant for dyslipidemia, obesity, hypertension. Patient presents to the emergency room due to left lower quadrant pain sudden onset, patient denies any melena, hematochezia, hematemesis, coffee-ground emesis, weight loss, constipation, changes in stool character. CT abdomen and pelvis reviewed MPRESSION: Rectosigmoid soft tissue thickening with bilateral internal iliac, common iliac and periaortic lymphadenopathy. 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 Nonspecific inflammatory change along the distal left ureter; no urinary tract calculus or hydroureteronephrosis Bilateral renal cysts Normal appendix Diverticulosis of the colon Bilateral small fat-containing inguinal hernias He had colonoscopy on 10/03- did well overnight and discharged on 10/04 with a close f/u with GI in 1-2 weeks for biopsy results. Status at Discharge Functional status at discharge: independent ambulation Overall status at discharge: patient is back to baseline Time Spent with Patient Time attestation: Total time spent providing and/or coordinating discharge services: Time spent: Greater than 30 minutes Exam Narrative: Patient is sitting in chair. alert/oriented Const: General: comfortable, no acute distress, well developed, alert, awake and average body habitus Nutritional Appearance: average body habitus Orientation/consciousness: patient oriented x3 Other: Patient prepping with GoLYTELY HENMT: Head: normal to inspection, normocephalic and atraumatic Ears: hearing grossly normal bilaterally Face/Nose/Sinus: normal facial exam Face and sinus: normal facial exam Eyes: General: appearance normal, both eyes and all related structures Pupils: Equal, round and reactive pupils present EOM: EOMs intact bilaterally Neck: Neck: full ROM, no lymphadenopathy and no JVD Thyroid: thyroid normal Lymphatic: no lymphadenopathy noted Resp: Effort & Inspection: normal respiratory effort and able to speak in complete sentences Auscultation: clear to auscultation bilaterally Cardio: Jugular venous distension: no JVD Rate: regular rate Rhythm: regular rhythm Heart sounds: S1 normal heart sound present and S2 normal heart sound present : General: Yes deferred Skin: Rashes: no rashes Wounds: no wounds Neuro: General: patient oriented x3 and CN's II-XI intact bilaterally Cranial nerves: Yes CN's II-XII intact bilaterally and Yes Equal, round and reactive pupils present Cognition (Neuro): normal cognition Speech: normal speech Gait exam (Neuro): Normal gait present Motor exam (neuro): 5/5 motor strength present throughout Extrem: General: normal to inspection, full ROM, no joint enlargement and no pedal edema DS: Data Data Completed and Pending Pending studies at discharge: Pending at discharge 10/03/24 11:08 Surgical [PTH] Routine Discharge Plan Discharge Attending physician on discharge: Ashley Dorsey Consulting providers: Maksim Cat Discharging Clinician: Mimi Wisdom Patient Disposition: Home, Self-Care Activity: may shower Diet: regular Discharge Instructions: please f/u with GI in 1-2 weeks for a follow up on your biopsy results. Patient Instructions: Antibiotic Form Patient Language: Mexican Stand Alone Forms: General Discharge Information Follow-up/Referrals: FabioDerik MD [Primary Care Provider] - 1 Week Maksim Cat MD [Physician] - 2 Weeks Discharge Medications: Continued amlodipine 10 mg tablet 10 mg PO QHS lisinopril 40 mg tablet 40 mg PO QHS sertraline 50 mg tablet 50 mg PO QHS rosuvastatin 40 mg tablet 40 mg PO QHS aspirin 81 mg Tablet,Chewable 81 mg PO QHS omega 1-eno-gho-fish oil [Fish Oil] 1,000 (120-180) mg capsule 1 cap PO BID Date of admission: 10/02/24 18:47 Primary Care Provider: FabioDerik Admitting Provider: Elias Aguilera Attending physician on admission: Elias Aguilera Condition: Stable Quality VTE Prophylaxis VTE prophylaxis: mechanical ordered Hospitalist MIPS Heart Failure (Exclusion) Patient has history of Heart Transplant or Left Ventricular Assistive Device?: No IF YES, STOP HERE Heart Failure (Qualifier) Patient has current or prior documentation of LVEF less than or equal to 40%, or mod/servere depressed LVSF?: No IF NO, STOP HERE
--- NOTE | 2024-10-04 11:59 | WPDGIPROGNO ---
Progress Note: A&P Assessment and Plan (1) Abnormal CT scan, colon: Code(s): R93.3 - Abnormal findings on diagnostic imaging of other parts of digestive tract Status: Acute Assessment and Plan: noted inflammation in rectum, pending biopsies for next step- if malignancy obviously will refer to oncologist he denies any pain now and doing ok, going home (2) Change in stool caliber: Code(s): R19.5 - Other fecal abnormalities Status: Acute Subjective Date/time seen: 10/04/24 11:59 Interval history: doing well and going home colonoscopy yesterday with localized inflammation in rectum, no obvious mass but pending pathology Review of Systems Review of Systems: All systems reviewed & are unremarkable except as noted in HPI and below Exam Const: General: comfortable and no acute distress HENMT: Face/Nose/Sinus: Normal nares present Eyes: General: appearance normal, both eyes and all related structures Neck: Neck: no JVD Resp: Auscultation: clear to auscultation bilaterally Cardio: Rate: regular rate Rhythm: regular rhythm GI: Inspection: non-distended GI Palp: Yes Soft to palpation Skin: General skin exam: normal color Neuro: General: gait normal Speech: normal speech Extrem: General: normal to inspection Psych: Mental Status: mental status grossly normal Objective Data Vital Signs Vital Signs: Vital Signs - 24 hr 10/03/24 14:00 10/03/24 20:00 10/03/24 20:39 Temperature 98.1 F 97.8 F Pulse Rate 88 62 Respiratory Rate 18 16 Blood Pressure 129/71 153/86 H Pulse Oximetry 100 98 Oxygen Delivery Room Air 10/04/24 05:11 10/04/24 08:00 Temperature 98.2 F Pulse Rate 78 Respiratory Rate 16 Blood Pressure 126/73 Pulse Oximetry 97 Oxygen Delivery Room Air Intake/Output Intake/Output: Intake & Output 10/01/24 10/02/24 10/03/24 10/04/24 23:59 23:59 23:59 23:59 Intake Total 850 550 Balance 850 550 Meds/Results Medications: Active Medications Generic Name Dose Route Start Last Admin Trade Name Freq PRN Reason Stop Dose Admin Amlodipine Besylate 10 mg 10/03/24 21:00 10/03/24 20:45 Amlodipine Besylate 10 Mg Tablet PO 10 mg QHS WILLEM Administration Aspirin 81 mg 10/03/24 21:00 10/03/24 20:45 Aspirin 81 Mg Chewable Tablet PO 81 mg QHS WILLEM Administration Fish Oil 1 gm 10/03/24 17:00 10/04/24 08:55 [place] 3 Polyunsat Fatty Acids 1 Gm Cap PO 1 gm BID WILLEM Administration Lisinopril 40 mg 10/03/24 21:00 10/03/24 20:44 Lisinopril 20 Mg Tablet PO 40 mg QHS WILLEM Administration Ondansetron HCl 4 mg 10/02/24 18:47 Ondansetron Inj 4 Mg/2 Ml Vial IV PUSH Q4H PRN Nausea Rosuvastatin Calcium 40 mg 10/03/24 21:00 10/03/24 20:44 Rosuvastatin 20 Mg Tablet PO 40 mg QHS WILLEM Administration Sertraline HCl 50 mg 10/03/24 21:00 10/03/24 20:45 Sertraline Hcl 50 Mg Tablet PO 50 mg QHS WILLEM Administration Radiology Results: ITS Impressions Abdomen/Pelvis CT 10/02/24 18:04 IMPRESSION: Rectosigmoid soft tissue thickening with bilateral internal iliac, common iliac and periaortic lymphadenopathy. 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 Nonspecific inflammatory change along the distal left ureter; no urinary tract calculus or hydroureteronephrosis Bilateral renal cysts Normal appendix Diverticulosis of the colon Bilateral small fat-containing inguinal hernias
--- OUTSIDE RECORDS SUMMARY | 2024-10-09 22:30 | XMS_ITS | Referral Summary ---
Author Organization [facility] Address [address] [place] [address] Care Team Providers Care Co Founder And Chairman Name Role Phone Savanna Walter DO Primary Care Provider Unavailabl e Source Comments [facility],non-owned Affiliates and Associated Physician Practices is amultiple site organization consisting of ambulatory clinics and hospital sitesin [place], [place], [place] and [place]. This disclosure is being madepursuant to the Care Everywhere program and may not contain all information available regarding this patient. Last updated 18.[facility] Encounters Date Type Department Care Team Description 10/07/2024 Lab Requisition [facility] - Pathology Lab [address] [place] [id number] Artis García MD Illness, unspecified from Last 3 Months Allergies No known active allergies Medications * Be aware that medications may not be up to date on this document. Alwaysverify current medications with the patient. Medication Sig Dispensed Refills Start Date End Date Status lovastatin (MEVACOR) 20 MG tablet Take 40 mg by mouth at bedtime. Active lisinopril (PRINIVIL; ZESTRIL) 40 MG tablet Take 40 mg by mouth daily. Active sertraline (ZOLOFT) 50 MG tablet Take 50 mg by mouth daily. Active clopidogrel (PLAVIX) 75 MG tablet Take 1 Tab by mouth daily. 30 11 06/21/2009 Active aspirin 81 MG tablet Take 1 Tab by mouth daily. 0 0 06/21/2009 Active Social History Tobacco Use Types Packs/Day Years Used Date Smoking Tobacco: Never Alcohol Use Standard Drinks/Week Comments Yes 0 (1 standard drink = 0.6 oz pur e alcohol) Sex and Gender Information Value Date Recorded Sex Assigned at Not on file Gender Identity Not on file Sexual Orientation Not on file Last Filed Vital Signs Vital Sign Reading Time Taken Comments Blood Pressure 128/80 06/21/2009 12:00 PM CDT Pulse 65 06/21/2009 12:00 PM CDT Temperature 37.1 ??C (98.8 ??F) 06/21/2009 1 2:00 PM CDT Respiratory Rate 18 06/21/2009 12:0 0 PM CDT Oxygen Saturation 96% 06/21/2009 12: 00 PM CDT Inhaled Oxygen Concentration - - Weight 97.4 kg (214 lb 11.7 oz) 009 12:00 AM CDT Height 182.9 cm (6') 06/20/2009 2:15 PM CDT Body Mass Index 29.12 06/20/2009 2:15 PM CDT Plan of Treatment Not on file Advance Directives * Full Code (Latest Code Status on File) Date Activated Date Inactivated Comments 06/20/2009 1:37 PM 06/22/2009 1:11 AM Care Teams Co Founder And Chairman Relationship Specialty Start Date End Date Savanna Walter DO OIG SANCTIONED!! DO NOT USE!! PCP - General 06/20/09
--- OUTSIDE RECORDS SUMMARY | 2024-10-09 22:30 | XMS_ITS | Clinical Summary ---
Author Organization [facility] Address [address] [place] [address] Care Team Providers Care Professor Of Sport Management Name Role Phone Savanna Walter DO Primary Care Provider Unavailabl e Source Comments [facility],non-owned Affiliates and Associated Physician Practices is amultiple site organization consisting of ambulatory clinics and hospital sitesin [place], [place], [place] and [place]. This disclosure is being madepursuant to the Care Everywhere program and may not contain all information available regarding this patient. Last updated 18.[facility] Allergies No known active allergies Medications * [...] by mouth daily. 0 0 06/21/2009 Active Encounters Date Type Department Care Team Description 10/07/2024 Lab Requisition [facility] - Pathology Lab [address] [place] [address] Artis García MD Illness, unspecified from Last 3 Months Social History Tobacco Use Types Packs/Day Years [...] 06/20/2009 2:15 PM CDT Plan of Treatment Health Maintenance Due Date Last Done Comments COLOGUARD (AGES 45-75) - COL ON CA SCREENING 1962 COLON MONITORING 1962 COLONOSCOPY - COLON CA SCREENING 1962 CT COLONOGRAPHY - COLON CA SCREENING 1962 Colorectal Cancer Screening 1962 FIT - COLON CA SCREENING 1962 FLEX SIG - COLON CA SCREENING 1962 HIV SCREENING 1977 HEPATITIS C SCREENING 04/27/1980 DTAP/TDAP/TD VACCINES (1 - Tdap) 1981 ZOSTER VACCINE (1 of 2) 2012 DEPRESSION SCREENING 10/12/2023 COVID-19 VACCINE ( - 2023-2 5 season) 2024 INFLUENZA VACCINE (#1) 2024 Respiratory Syncytial Virus (RSV) Vaccine Pt: or over 60 yrs (1 - 1-dose 75+ series) 2037 HEPATITIS B VACCINE Aged Out No longe r eligible based on patient's age to complete this topic HIB VACCINE Aged Out No longer eligi ble based on patient's age to complete this topic HPV VACCINE Aged Out No longer eligi ble based on patient's age to complete this topic MENINGOCOCCAL VACCINE Aged Out No dudley selwyn eligible based on patient's age to complete this topic PNEUMOCOCCAL VACCINE Aged Out No long er eligible based on patient's age to complete this topic Advance Directives * Full Code (Latest Code Status on File) Date Activated Date Inactivated Comments 06/20/2009 1:37 PM 06/22/2009 1:11 AM Care Teams Professor Of Sport Management Relationship Specialty Start Date End Date Savanna Walter DO OIG SANCTIONED!! DO NOT USE!! PCP - General 06/20/09
--- OUTSIDE RECORDS SUMMARY | 2024-10-09 22:30 | XMS_ITS | Patient Health Summary ---
Author Organization [facility] Address [address] [place] [address] Care Team Providers Care Freight Separator Name Role Phone Savanna Walter DO Primary Care Provider Unavailabl e Note from [facility],non-owned Affiliates and Associated Physician Practices is amultiple site organization consisting of ambulatory clinics and hospital sitesin [place], [place], [place]. This disclosure is being madepursuant to the Care Everywhere program and may not contain all information available regarding this patient. Last updated 18.[facility] Allergies No known active allergies Medications * Be aware that medications may not be up to date on this document. Alwaysverify current medications with the patient. * lovastatin (MEVACOR) 20 MG tablet Take 40 mg by mouth at bedtime. * lisinopril (PRINIVIL; ZESTRIL) 40 MG tablet Take 40 mg by mouth daily. * sertraline (ZOLOFT) 50 MG tablet Take 50 mg by mouth daily. * clopidogrel (PLAVIX) 75 MG tablet(Started 06/21/2009) Take 1 Tab by mouth daily. 11 refills left * aspirin 81 MG tablet(Started 06/21/2009) Take 1 Tab by mouth daily. Social History Tobacco Use Types Packs/Day Years [...] Mass Index 29.12 06/20/2009 2:15 PM CDT Procedures * CARDIAC PROCEDURE ORDER(Performed 07/08/2009) * LAB RESULTS ORDER(Performed 07/04/2009) * CARDIAC STRESS TEST ORDER(Performed 07/04/2009) * CARDIAC RHYTHM STRIP ORDER(Performed 07/04/2009) * CARDIAC EKG ORDER(Performed 07/03/2009) * CK + CKMB PANEL(Performed 06/21/2009) Performed for Cor Athrscl-Uns Vessel * CK + CKMB PANEL(Performed 06/20/2009) Performed for Cor Athrscl-Uns Vessel * CARDIAC CATH CONSULT(Performed 06/20/2009) Results * CARDIAC PROCEDURE ORDER (07/08/2009 7:40 AM CDT) Narrative Procedure Note Document, Scanned - 06/20/2009 12:00 AM CDT Transcriptions Document, Scanned - 06/20/2009 12:00 AM CDT Document, Scanned - 06/20/2009 12:00 AM CDT Document, Scanned - 06/20/2009 12:00 AM CDT Scanned Document CARDIAC SERVICES ORD ERABLES * LAB RESULTS ORDER (07/04/2009 1:34 PM CDT) Narrative 07/04/2009 1:34 PM CDT Ordered by an unspecified provider. Transcriptions Document, Scanned - 06/20/2009 12:00 AM CDT Scanned Document LAB - THERAPEUTIC DR UG MONITORING ORDERABLES * CARDIAC STRESS TEST ORDER (07/04/2009 1:34 PM CDT) Narrative 07/04/2009 1:34 PM CDT Ordered by an unspecified provider. Transcriptions Document, Scanned - 06/20/2009 12:00 AM CDT Scanned Document CARDIAC SERVICES ORD ERABLES * CARDIAC RHYTHM STRIP ORDER (07/04/2009 1:34 PM CDT) Narrative 07/04/2009 1:34 PM CDT Ordered by an unspecified provider. Transcriptions Document, Scanned - 06/20/2009 12:00 AM CDT Scanned Document CARDIAC SERVICES ORD ERABLES * CARDIAC EKG ORDER (07/03/2009 9:32 PM CDT) Narrative 07/03/2009 9:32 PM CDT Ordered by an unspecified provider. Transcriptions Document, Scanned - 06/20/2009 12:00 AM CDT Scanned Document CARDIAC SERVICES ORD ERABLES * (ABNORMAL) CK + CKMB PANEL (06/21/2009 4:05 AM CDT) Only the most recent of2 resultswithin the time period is included. CK 296(H) 55.0 - 170.0 U/L [facility] CK-MB 12.9 ng/ml [facility] Interpretation CK-MB [facility] Comment: An abrupt rise/fall of CKMB over 24 hours is an acute injury pattern. BLOOD SPECIMEN / Unknown 06/21/2009 4:05 AM CDT 06/21/2009 4:11 AM CDT Sky Birmingham MD LAB - CHEMISTRY [address] [facility] Organization Address City/State/[facility] [[email or web address]] Co de Phone Number [facility] [address] [place] [address] Care Teams Freight Separator Relationship Specialty Start Date End Date Savanna Walter DO OIG SANCTIONED!! DO NOT USE!! PCP - General 06/20/09
--- OUTSIDE RECORDS SUMMARY | 2024-10-09 22:30 | XMS_ITS | Continuity of Care Document ---
Author Organization [facility] Address [address] [place] [address] Phone Care Team Providers Care Travel Insurance Agent Name Role Phone Raymundo Fuentes MD Unavailable Unavailable Allergies, Adverse Reactions, Alerts Substance Reaction Status Criticality No Known Drug Allergies Active No I nformation Medications Medication Instructions Dosage Effective Dates (start - stop) Status Comments sertraline 50 mg tablet take 1.5 tablet by oral route every day - No Longer Active SERTRALINE HCL TABS 50MG TAKE ONE AND ONE-HALF TABLETS DAILY - No Longer Active aspirin 81 mg tablet,delayed release take 1 tablet by oral route every day 81 MG - No Longer Active Crestor 20 mg tablet take 1 tablet by mouth every other day - No Longer Active lisinopril 40 mg tablet take 1 tablet by oral route every day 40 MG - No Longer Active Plavix 75 mg tablet take 1 tablet by oral route every day 75 MG - No Longer Active Advance Directives Directive Yes / No Effective Date File Name No Information Encounters Encounter Description Practice Location Reason(s) For Visit Diagnoses Date Provider Providers Copied on Encounter [facility], [address], [place], [place], [id number] , [place] tel: [phone] [facility] No Information [address] [facility] [address] [facility], [address], [place], [place], [address] , [place]. tel: [phone] [facility], [address], [place], [place], [address] , tel: [phone] [facility] No Information 0 Alfredo Fonseca. [address] [place] [address], [address], [place], [place], [address] , . tel: [phone] [facility], [address], [place], [place], [id number] , tel: [phone] [facility] No Information 8 Alfredo Fonseca. [address] [place] [address], [address], [place], [place], [address] , . tel: [phone] [facility], [address], [place], [place], [address] , tel: [phone] [facility] Body mass index (BMI) 30.0-30.9, adultGastroesophageal reflux disease without esophagitisEssential hypertensionMixed hyperlipidemiaCoronar y artery disease involving stockbridge coronary artery of stockbridge heart without angina pectorisAnxietyInflue nza vaccine neededScreening PSA (prostate specific antigen)Other fatigue 8 Ghada Keys. [address] [place] [address], [address] , [place], [place], [address] , . tel: [phone] Referring Provider: Raymundo Fuentes [address] [place] [address] [address] , [place], [address] . tel:[phone] [facility], [address], [place], [place], [address] , tel: [phone] [facility] AnxietyEssential hypertensionHyperlipi demia, unspecified hyperlipidemia typeCoronary artery disease involving stockbridge coronary artery of stockbridge heart without angina pectoris 6 Ghada Keys. [address] [place] [address], [address], [place], [place], [address] , . tel: [phone] Referring Provider: Raymundo Fuentes [address] [place] [address] [address], [place], [address] . tel:[phone] Family History Family Member Type Diagnosis Age At Onset Mother Problem (finding) premature coronary hear t disease Father Problem (finding) raised blood lipids Mother Problem (finding) malignant neoplasm of l isi Mother Problem (finding) hypertension Mother Problem (finding) Blood disorder Mother Problem (finding) raised blood lipids Immunizations Vaccine Date Status Comments Flublok, quadrivalent, preservative free, 0.5mL dosage administered Source: New Immuniza tion Record Payers Payer name Insurance type Covered democrat ID Authoriza tion(s) BCBS ACCESS CHOICE [id number] BCBS ACCESS CHOICE [id number] Social History Type Description Quantity Date Captured Comments Sex Male Smoking Status No Information Chief Complaint And Reason For Visit No Information Reason For Referral Reason For Referral No Information Plan Of Treatment Date Type Action Status Patient Education Gastroesophageal Reflux Disease (GERD~ completed History Of Present Illness Encounter Date Complaint History Of Prese nt Illness No Information Functional Status Date Functional Assessmen t No Information Medications Administered Medication Instructions Dosage Effective Dates (start - stop) Status Comments sertraline 50 mg tablet take 1.5 tablet by oral route every day - No Longer Active Instructions Date Instruction Additional Infor mation No Information Assessments Type Assessment Date No Information Patient Care Teams Name Effective Dates (start - stop) Status Members No Information
--- OUTSIDE RECORDS SUMMARY | 2024-10-09 22:30 | XMS_ITS | Encounter Summary ---
Author Organization [facility] Health Address [address] [place] [address] Care Team Providers Care Ed Case Manager Name Role Phone Savanna Walter DO Primary Care Provider Unavailabl e Encounter Details Date Type Department Care Team (Latest Contact Info) Description 06/20/2009 2:10 PM CDT - 06/21/2009 1:09 PM CDT Hospital Encounter [facility] NEURO/NEUROSRG [address] [place], [place] [id number] [place] [address] [facility] [address] [place] [address] Medical Inpatient Discharge Disposition: Home or Self Care Social History Tobacco Use Types Packs/Day Years Used Date Smoking Tobacco: Never Alcohol Use Standard Drinks/Week Comments Yes 0 (1 standard drink = 0.6 oz pur e alcohol) Sex and Gender Information Value Date Recorded Sex Assigned at Not on file Gender Identity Not on file Sexual Orientation Not on file documented as of this encounter Last Filed Vital Signs Vital Sign Reading [...] Mass Index 29.12 06/20/2009 2:15 PM CDT documented in this encounter Discharge Summaries * Branden Galaviz MD - 06/21/2009 12:23 PM CDT Discharge Summary No chest pain or dyspnea. Mild bradycardia overnight, not symptomatic VS stable. Lungs clear. No femoral hematoma or pedal pulse deficits. Disposition: Home today, follow up in [place] office in 4 weeks Condition at discharge: Good Discharge meds: See discharge med summary Diagnosis: 1. Coronary artery disease, s/p OSCAR to obtuse marginal artery 2. Hypercholesterolemia 3. Hypertension Branden Wilder. MD Guillaume 06/21/2009 12:26 PM documented in this encounter Discharge Instructions * Discharge Instructions* Ximena Schwarz RN - 06/21/2009 12:53 PM CDT Discharge Instructions for: Kirk Stokes START taking these medications clopidogrel (PLAVIX) 75 MG tablet Take 1 Tab by mouth daily. Qty: 30 Refills: 11 aspirin 81 MG tablet Take 1 Tab by mouth daily. Qty: 0 Refills: 0 CONTINUE these medications which have NOT CHANGED lovastatin (MEVACOR) 20 MG tablet Take 40 mg by mouth at bedtime. lisinopril (PRINIVIL; ZESTRIL) 40 MG tablet Take 40 mg by mouth daily. sertraline (ZOLOFT) 50 MG tablet Take 50 mg by mouth daily. Discharge Procedure Orders NO LIFTING OVER Order Specific Question Answer Comments How many pounds? 10 For how long? One week 2 MONTHS NO TUB BATH Order Specific Question Answer Comments For how long? One week INCISION CARE You may remove dressing after 24hours, gently clean site with soap and water, apply new bandaide daily, keep area clean and dry, if bandage becomes wet change immediately. WHEN TO NOTIFY PHYSICIAN For any significant bleeding, increased swelling of groin or leg, unusual pain at groin site or down same leg, signs of infection- redness, warm to touch, incision area does not heal, prolonged drainage, fever or chills. PATIENT TO CALL PHYSICIAN FOR APPOINTMENT Follow up with Dr. Birmingham Jul 20 1:45pm- [facility] office [phone] [id number], [facility] [address]. Bring all medications to visit. CARDIAC DIET AT HOME 4 gram sodium, low fat LOW CHOLESTEROL DIET AT HOME RETURN TO WORK May return to work tomorrow 06/22/2009 Order Specific Question Answer Comments after... One day Do not smoke. Avoid second hand smoke. The following belonging have been returned to you Clothing Clothing: Yes With Patient: Shirt;Pants;Footwear Jewelry Jewelry: Yes With Patient: Necklace;Ring Electronics Electronic Items: Yes Sent Home: Cell Phone Dentures Dentures/Retainers: None Vision Visual Aids: Yes Glasses: With Patient Hearing Aids Hearing Aids: None Equipment/Assistive Devices Equipment with Patient: None Equipment At Home: None Home Medications Home Medications: None Miscellaneous Belongings Miscellaneous Items: None Monetary Monetary Items: None Sent Home: Wallet WEIGHT MONITORING - If you have heart failure, weigh yourself every morning. Contact your physician if your weight increases by 3 pounds in 1 day OR 5 pounds in 1 week. WHAT TO DO IF SYMPTOMS WORSEN - Contact your physician if you have shortness of breath/difficulty breathing, or any swelling of your legs, ankles or feet. The discharge and medication instructions have been reveiwed with me and my questions have been answered. I have received a copy of the discharge instructions. 06/21/2009 CLOPIDOGREL (By mouth) Clopidogrel (aocq-WJL-hd-grel) Helps reduce strokes, heart attacks, and other heart problems caused by atherosclerosis (build-up of fat in your arteries). This medicine is a blood thinner. Brand Name(s):Plavix There may be other brand names for this medicine. When This Medicine Should Not Be Used: You should not use this medicine if you have had an allergic reaction to clopidogrel, or if you have a bleeding stomach ulcer or head injury that has caused bleeding in your brain. How to Use This Medicine: Tablet ?? Your doctor will tell you how much of this medicine to take and how often. Do not take more medicine or take it more often than your doctor tells you to. You may take the medicine with or without food. If a dose is missed: ?? If you miss a dose or forget to take your medicine, take it as soon as you can. If it is almost time for your next dose, wait until then to take the medicine and skip the missed dose. Do not use extra medicine to make up for a missed dose. How to Store and Dispose of This Medicine: ?? Store the medicine at room temperature in a closed container, away from heat, moisture, and direct light. Ask your pharmacist, doctor, or health caregiver about the best way to dispose of any outdated medicine or medicine no longer needed. Keep all medicine out of the reach of children and never share your medicine with anyone. Drugs and Foods to Avoid: Ask your doctor or pharmacist before using any other medicine, including [id number] medicines, vitamins, and herbal products. ?? Make sure your doctor knows if you are also using fluvastatin (Lescol??), heparin, other blood thinners (such as warfarin, Coumadin??). Talk with your doctor before taking aspirin or any other type of pain or arthritis medicine (such as diclofenac, etodolac, ibuprofen, indomethacin, Advil??, Aleve??, Daypro??, Dolobid??, Feldene??, Indocin??, Motrin??, Orudis??, Relafen??, Voltaren??), phenytoin (Dilantin??), tamoxifen (Nolvadex??), tolbutamide (Orinase??), torsemide (Demadex??). Taking clopidogrel with these medicines may increase your risk of stomach bleeding. If you are using this medicine for a condition called acute coronary syndrome, your doctor may tellyou to take aspirin while you are using clopidogrel. In this case, do not start or stop taking the aspirin without asking your doctor. Warnings While Using This Medicine: ?? Make sure your doctor knows if you are or , or if you have liver disease. While you are using this medicine, if you have any kind of bleeding it may take longer than usual to stop, especially if you hurt yourself. Stay away from rough sports or other situations where you could be bruised, cut, or injured. You may also have bleeding inside your body and not be aware of it. Tell your doctor if you have any unusual bleeding such as nosebleeds or blood in your urine or stools. Make sure any doctor or dentist who treats you knows that you are using this medicine. Possible Side Effects While Using This Medicine: Call your doctor right away if you notice any of these side effects: ?? Allergic reaction: Itching or hives, swelling in face or hands, swelling or tingling in the mouth or throat, tightness in chest, trouble breathing Blood in your urine Bloody or black, tarry stools Chest pain (may be related to your disease and not a side effect) Fever, chills, sore throat Severe stomach pain Skin rash Unusual bleeding or bruising If you notice these less serious side effects, talk with your doctor: ?? Diarrhea, indigestion, stomach pain Headache, dizziness Joint pain Runny or stuffy nose, cough If you notice other side effects that you think are caused by this medicine, tell your doctor. Copyright ?? 2004 [employer]. All rights reserved. Information is for End User's use only and may not be sold, redistributed or otherwise used for commercial purposes. The above information is an respiratory therapy aide only. It is not intended as medical advice for individual conditions or treatments. Talk to your doctor, nurse or pharmacist before following any medical regimen to see if it is safe and effective for you. * Discharge Instructions* Document, Scanned - 06/20/2009 12:00 AM CDT documented in this encounter Medications at Time of Discharge Medication Sig Dispensed Refills Start Date End Date aspirin 81 MG tablet Take 1 Tab by mouth daily. 0 0 06/21/2009 clopidogrel (PLAVIX) 75 MG tablet Take 1 Tab by mouth daily. 30 11 06/21/2009 lisinopril (PRINIVIL; ZESTRIL) 40 MG tablet Take 40 mg by mouth daily. lovastatin (MEVACOR) 20 MG tablet Take 40 mg by mouth at bedtime. sertraline (ZOLOFT) 50 MG tablet Take 50 mg by mouth daily. documented as of this encounter Progress Notes * Arlen Hopkins RN - 06/21/2009 12:12 PM CDT Cardiac rehab: Post stent education reviewed with this very receptive patient and who verbalized understanding of all material presented. See education notes for specifics. * Kristal Spicer - 06/21/2009 11:00 AM CDT Nutrition Comments: Pt reports good appetite, does not follow a special diet at home. Heart Healthy Diet Education Diet:cardiac Po intake:100% of meals. PMH noted. Labs reviewed. Interventions Diet Order: Agree with current diet order Height: 6' (182.9 cm) Weight: 214 lb 11.7 oz (97.4 kg) BMI (Calculated): 28.54 Nutritional Diagnostic Statement Nutritional Diagnostic Statement: Food and nutrition knowledge deficit r/t new stent placed. Intervention: Completed education on the following: Heart Healthy guidelines Low sodium guidelines Increasing fiber in diet Provided education packet / contact information. See Care Plan for Goals. * Document, Scanned - 06/20/2009 12:00 AM CDT * Document, Scanned - 06/20/2009 12:00 AM CDT documented in this encounter H&P Notes * Sky Birmingham MD - 06/20/2009 11:13 AM CDT History and Physical and Pre-Sedation Assessment Patient's Primary Care Physician: Savanna Walter DO Name: Kirk Stokes Age: 49 y.o. Race: Sex: male Chief Complaint/History of Present Illness Patient complains of: Chest Pain ,abnormal stress test Past Medical History Diagnosis Date ??? CAD (Coronary Artery Disease) ??? HTN (HYPERTENSION) ??? Hypercholesteremia ??? Anxiety Prescriptions prior to admission Medication Sig Dispense Refill ??? lovastatin (MEVACOR) 20 MG tablet Take 40 mg by mouth at bedtime. ??? lisinopril (PRINIVIL; ZESTRIL) 40 MG tablet Take 40 mg by mouth daily. ??? sertraline (ZOLOFT) 50 MG tablet Take 50 mg by mouth daily. No Known Allergies. Anesthesia History Review of Systems Pertinent items are noted in HPI Exam Vitals: 06/20/2009 10:47 AM 06/20/2009 10:57 AM BP: 114/70 Pulse: 66 Temp: 97.7 ??F Resp: 13 Weight: 95.255 kg (210 lb) SpO2: 97% General appearance: alert, cooperative, no distress Heart: regular rhythm, normal S1 and S2, without murmurs, rubs or gallops Lungs: breath sounds normal and symmetric; no rales or wheezes Abdomen: soft without mass, non-tender, with normal bowel sounds Extremities: no clubbing, cyanosis or edema Data I have reviewed the admission labs and there are no abnormal findings. PRE-SEDATION PHYSICIAN ASSESSMENT Date: 06/20/2009 Time: 11:13 AM Kirk Stokes is a 49 y.o. male Pre-procedure diagnosis: Abnormal Stress Test Planned Procedure: Percutaneous Coronary Intervention Medications, vital signs and labs results reviewed prior to procedure: Yes No Known Allergies. SEDATION PLAN: moderate ASA Physical Status Classification: 3 (A patient with severe systemic disease) Mallampati Airway Classifications II (soft palate, uvula, fauces visible) Patient airway and condition has been evaluated immediately prior to sedation and/or analgesia: {Yes Assessment and Plan CAD,abnl ETT Plan PCI of OM using OSCAR * Document, Scanned - 06/20/2009 12:00 AM CDT documented in this encounter Procedure Notes * Sky Birmingham MD - 06/20/2009 11:55 AM CDT Succesful stent of 1st OM using 2.75 X 18 mm Xience stent. Angioseal * Document, Scanned - 06/20/2009 12:00 AM CDTAssociated Order(s): CARDIAC PROCEDURE ORDER * Document, Scanned - 06/20/2009 12:00 AM CDTAssociated Order(s): CARDIAC EKG ORDER * Document, Scanned - 06/20/2009 12:00 AM CDTAssociated Order(s): CARDIAC PROCEDURE ORDER * Document, Scanned - 06/20/2009 12:00 AM CDTAssociated Order(s): CARDIAC RHYTHM STRIP ORDER * Document, Scanned - 06/20/2009 12:00 AM CDTAssociated Order(s): CARDIAC STRESS TEST ORDER * Document, Scanned - 06/20/2009 12:00 AM CDTAssociated Order(s): LAB RESULTS ORDER * Document, Scanned - 06/20/2009 12:00 AM CDTAssociated Order(s): CARDIAC PROCEDURE ORDER * Document, Scanned - 06/20/2009 12:00 AM CDTAssociated Order(s): CARDIAC PROCEDURE ORDER documented in this encounter Consult Notes * Document, Scanned - 06/20/2009 12:00 AM CDT documented in this encounter Miscellaneous Notes * Miscellaneous Scans - Document, Scanned - 06/20/2009 12:00 AM CDT * Miscellaneous Scans - Document, Scanned - 06/20/2009 12:00 AM CDT * Miscellaneous Scans - Document, Scanned - 06/20/2009 12:00 AM CDT * Miscellaneous Scans - Document, Scanned - 06/20/2009 12:00 AM CDT * Miscellaneous Scans - Document, Scanned - 06/20/2009 12:00 AM CDT * Miscellaneous Scans - Document, Scanned - 06/20/2009 12:00 AM CDT * Miscellaneous Scans - Document, Scanned - 06/20/2009 12:00 AM CDT documented in this encounter Plan of Treatment Pending Results Name Type Priority Associated Diagnoses Date /Time CARDIAC CATH CONSULT ECHO Routine 06/2009 10:48 AM CDT documented as of this encounter Procedures Procedure Name Priority Date/Time Associated Diagnosis Comments CARDIAC PROCEDURE ORDER 07/08/2009 7:40 AM CDT LAB RESULTS ORDER 07/04/2009 1:3 4 PM CDT CARDIAC STRESS TEST ORDER 07/04/2009 1:34 PM CDT CARDIAC RHYTHM STRIP ORDER 07/04/2009 1:34 PM CDT CARDIAC EKG ORDER 07/03/2009 9:3 2 PM CDT CK + CKMB PANEL Routine 06/21/2009 4:05 AM CDT Cor Athrscl-Uns Vessel CK + CKMB PANEL Routine 06/20/2009 7:40 PM CDT Cor Athrscl-Uns Vessel CARDIAC CATH CONSULT Routine 06/20/2009 10:48 AM CDT documented in this encounter Results * CARDIAC PROCEDURE ORDER (07/08/2009 7:40 [...] CDT Scanned Document LAB - THERAPEUTIC DR ROBERTO MONITORING ORDERABLES * CARDIAC STRESS TEST ORDER [...] + CKMB PANEL (06/21/2009 4:05 AM CDT) CK 296(H) 55.0 - 170.0 U/L [facility] CK-MB 12.9 ng/ml [facility] Interpretation CK-MB [facility] Comment: An abrupt rise/fall of CKMB over 24 hours is an acute injury pattern. BLOOD SPECIMEN / Unknown 06/21/2009 4:05 AM CDT 06/21/2009 4:11 AM CDT Sky Birmingham MD LAB - CHEMISTRY [address] Performing Organization Address [facility] de Phone Number [facility] [address] [place] [address] * (ABNORMAL) CK + CKMB PANEL (06/20/2009 7:40 PM CDT) CK 290(H) 55.0 - 170.0 U/L [facility] CK-MB 9.3 ng/ml [facility] Interpretation CK-MB [facility] Comment: An abrupt rise/fall of CKMB over 24 hours is an acute injury pattern. BLOOD SPECIMEN / Unknown 06/20/2009 7:40 PM CDT 06/20/2009 7:46 PM CDT Sky Birmingham MD LAB - CHEMISTRY [address] Performing Organization Address [facility] de Phone Number [facility] [address] [place] [address] documented in this encounter Visit Diagnoses Diagnosis Coronary atherosclerosis of unspecified type of vessel, mashpee or graft documented in this encounter Administered Medications Inactive Administered Medications - up to 3 most recent administrations Medication Order MAR Action Action Date Dose Rate Site 0.9% nacl infusion at 20 mL/hr, Intravenous, CONTINUOUS, Starting on Thu06/20/09 at 1100, Until Thu06/20/09 at 1337 $ New Bag/Syringe 06/20/2009 11:01 AM CDT 20 mL/hr aspirin chew tablet 324 mg 324 mg, Oral, ONCE, 1 dose, On Thu06/20/09 at 1115 $ Given 06/20/2009 11:15 AM CDT 324 mg aspirin EC (ECOTRIN) tablet 325 mg 325 mg, Oral, DAILY, First dose on Thu06/20/09 at 1345, Until Discontinued $ Given 06/21/2009 9:05 AM CDT 325 mg $ Given 06/20/2009 3:07 PM CDT 325 mg clopidogrel (PLAVIX) tablet 75 mg 75 mg, Oral, DAILY, First dose on Thu06/21/09 at 0900, Until Discontinued $ Given 06/21/2009 9:06 AM CDT 75 mg iohexol (OMNIPAQUE 350) injection Intra-arterial, CONTRAST ONCE, 1 dose, Starting on Thu06/20/09 at 1100, Until Thu06/20/09 at 1148 $ Given 06/20/2009 11:48 AM CDT 100 mL lisinopril (PRINIVIL; ZESTRIL) tablet 40 mg 40 mg, Oral, DAILY, First dose on Thu06/20/09 at 1345, Until Discontinued $ Given 06/21/2009 9:06 AM CDT 40 mg $ Given 06/20/2009 3:07 PM CDT 40 mg sertraline (ZOLOFT) tablet 50 mg 50 mg, Oral, DAILY, First dose on Thu06/20/09 at 1345, Until Discontinued, Avoid concurrent administration with grapefruit juice $ Given 06/21/2009 9:05 AM CDT 50 mg $ Given 06/20/2009 3:07 PM CDT 50 mg simvastatin (ZOCOR) tablet 5 mg 5 mg, Oral, AT BEDTIME, First dose on Thu06/20/09 at 2100, Until Discontinued $ Given 06/20/2009 10:25 PM CDT 5 mg documented in this encounter Active and Recently Administered Medications Times are shown in CDT. Scheduled Medication Order 06/19/2009 06/20/2009 06/21/2009 aspirin chew tablet 324 mg (COMPLETED) 324 mg, Oral, ONCE, 1 dose, On Thu06/20/09 at 1115 1115 ($ Given - Provider: Desirae Shaikh, FLORENTIN) aspirin EC (ECOTRIN) tablet 325 mg (CANCELED) 325 mg, Oral, DAILY, First dose on Thu06/20/09 at 1345, Until Discontinued 1507 ($ Given - Provider: Reba Sherwood RN) 09 ($ Given - Provider: Ximena Schwarz, FLORENTIN) clopidogrel (PLAVIX) tablet 75 mg 75 mg, Oral, DAILY, First dose on Thu06/21/09 at 0900, Until Discontinued 09 ($ Given - Provider: Ximena Spellerberg, RN) iohexol (OMNIPAQUE 350) injection (COMPLETED) Intra-arterial, CONTRAST ONCE, 1 dose, Starting on Thu06/20/09 at 1100, Until Thu06/20/09 at 1148 1148 ($ Given - Provider: Olena Oneill RN) lisinopril (PRINIVIL; ZESTRIL) tablet 40 mg (CANCELED) 40 mg, Oral, DAILY, First dose on Thu06/20/09 at 1345, Until Discontinued 1507 ($ Given - Provider: Reba Sherwood RN) 0906 ($ Given - Provider: Ximena Schwarz, FLORENTIN) sertraline (ZOLOFT) tablet 50 mg (CANCELED) 50 mg, Oral, DAILY, First dose on Thu06/20/09 at 1345, Until Discontinued, Avoid concurrent administration with grapefruit juice 1507 ($ Given - Provider: Reba Sherwood RN) 0905 ($ Given - Provider: Ximena Schwarz RN) simvastatin (ZOCOR) tablet 5 mg (CANCELED) 5 mg, Oral, AT BEDTIME, First dose on Thu06/20/09 at 2100, Until Discontinued 2225 ($ Given - Provider: Lexis Costa RN) Continuous Medication Order 06/19/2009 06/20/2009 06/21/2009 0.9% nacl infusion (CANCELED) at 20 mL/hr, Intravenous, CONTINUOUS, Starting on Thu06/20/09 at 1100, Until Thu06/20/09 at 1337 1101 ($ New Bag/Syringe - Provider: Desirae Shaikh RN) documented in this encounter Care Teams Ed Case Manager Relationship Specialty Start Date End Date Savanna Walter DO OIG SANCTIONED!! DO NOT USE!! PCP - General 06/20/09 documented as of this encounter
== END 2024-10-04 11:55 | disposition home or self-care (01) ==
LOC: ANHED 18:53 → ANH3MEDSUR 10-03 07:40
PROVIDERS: Internal Medicine Gastroenterology; Nurse Practitioner; Student in an Organized Health Care Education/Training Program; Admitting Provider General Practice; Emergency Provider Emergency Medicine; PCP Family Medicine; Visit Provider Internal Medicine
PROC: 0DJD8ZZ Inspection of Lower Intestinal Tract, Via Natural or Artificial Opening Endoscopic (ICD-10-PCS; CPT 45378; principal; 2024-10-03 14:30)
DX: C20 Malignant neoplasm of rectum (principal); R93.3 Abnormal findings on diagnostic imaging of other parts of digestive tract; R19.5 Other fecal abnormalities; K57.30 Diverticulosis of large intestine without perforation or abscess without bleeding; K64.8 Other hemorrhoids; D64.9 Anemia, unspecified; I10 Essential (primary) hypertension; E78.5 Hyperlipidemia, unspecified; E66.9 Obesity, unspecified; Z68.29 Body mass index [BMI] 29.0-29.9, adult
CPT/HCPCS: 45380; 36415; 74177; 80053; 81003; 83690; 85025; 88305; 88342; 96361; 96374; 99285; A9270; G0378; J1885; J2003; J2704; J7120; Q9967

== ENCOUNTER 2024-10-19 15:55 | Outpatient (CLI) | payer BC, SELFPAY ==
[2024-10-19 19:35] LABS: Carcinoembryonic Antigen 0.9 ng/mL (0.0-3.0); Prostate Specific Antigen 41.5 ng/mL (< OR = 4.0)
== END 2024-10-19 15:56 | disposition home or self-care (01) ==
LOC: ANHLAB 15:56
PROVIDERS: PCP Family Medicine; Visit Provider Internal Medicine Hematology & Oncology
DX: C61 Malignant neoplasm of prostate (principal); C19 Malignant neoplasm of rectosigmoid junction
CPT/HCPCS: 36415; 82378; 84153

== ENCOUNTER 2024-10-25 13:26 | Outpatient (CLI) | payer BC, SELFPAY ==
--- NOTE | ~2024-10-25 | PE_ITS ---
EXAMINATION: PET_PETPSMAST_PT DATE: 10/25/2024 15:37 INDICATION: Prostate cancer. TECHNIQUE: 5.334 mCi of Ga-68 gozetotide was administered intravenously. Low dose computed tomography (CT) images were acquired from the base of the brain to the proximal thighs for attenuation correcti on and anatomic localization. Automated exposure control was employed. Dose-length product (DLP) was 1264 mGy-cm. Positron emission tomography (PET) images were acquired in the same distribution. COMPARISON: CT abdomen and pelvis 10/02/2024 FINDINGS: Head/neck: There is a 3.7 x 2.0 cm left supraclavicular lymph node with maximum SUV of 33.1. Chest: The lungs demonstrate mild atelectasis. No pleural effusion. The heart size is normal. There a re coronary artery calcifications. No pericardial effusion. Abdomen/pelvis/proximal thighs: The liver, gallbladder, spleen, pancreas, and adrenal glands are norm al. There are cysts in the kidneys measuring up to 16 mm on the left. There is a 3 mm stone in left k idney. The prostate is mildly enlarged with increased activity. There is eccentric wall thickening of the rectum with increased activity. There is increased activity in perirectal, bilateral internal il iac nodes, bilateral external iliac nodes, bilateral common iliac, aortocaval, and left para-aortic n odes, many of which are enlarged. There is no increased activity in the bones. IMPRESSION: 1. Mildly enlarged prostate with increased activity, consistent with primary malignancy. 2. Pelvic, retroperitoneal, and left supraclavicular lymphadenopathy with increased activity, consist ent with metastatic disease. 3. Rectal wall thickening with increased activity, consistent with metastatic disease. Reviewed, dictated and finalized at location A. [facility] IMPRESSION: 1. Mildly enlarged prostate with increased activity, consistent with primary ma lignancy. 2. Pelvic, retroperitoneal, and left supraclavicular lymphadenopathy with incre ased activity, consistent with metastatic disease. 3. Rectal wall thickening with increased activity, consistent with metastatic d isease.
== END 2024-10-25 13:27 | disposition home or self-care (01) ==
PROVIDERS: PCP Family Medicine; Visit Provider Internal Medicine Hematology & Oncology
DX: C61 Malignant neoplasm of prostate (principal)
CPT/HCPCS: 78815; A9596

== ENCOUNTER 2024-11-16 17:20 | Outpatient (CLI) | payer BC, SELFPAY ==
--- OUTSIDE RECORDS SUMMARY | 2024-11-16 17:23 | XMS_ITS | Clinical Summary ---
Author Organization [facility] Address [address] [place] [address] Care Team Providers Care Wire Setter Name Role Phone Savanna Walter DO Primary Care Provider Unavailabl e Source Comments [facility]non-owned Affiliates and Associated Physician Practices is amultiple site organization consisting of ambulatory clinics and hospital sitesin [place], [place], [place] and [place]. This disclosure is being madepursuant to the Care Everywhere program and may not contain all information available regarding this patient. Last updated 18.[facility] Allergies No known active allergies Medications * [...] Department Care Team Description 10/07/2024 Lab Requisition [facility] - Pathology Lab [address] [place] [address] Artis García MD Illness, unspecified from Last [...] 65 06/21/2009 12:00 PM CDT Temperature 37.1 C (98.8 F) 06/21/2009 12:00 PM CDT Respiratory Rate 18 06/21/2009 12:0 [...] 04/27/1980 DTAP/TDAP/TD VACCINES (1 - Tdap) 1981 PNEUMOCOCCAL VACCINE 50+ (1 of 1 - PCV) 2012 ZOSTER VACCINE (1 of 2) 2012 COVID-19 VACCINE ( - 2023-2 5 season) 2024 INFLUENZA VACCINE (#1) 2024 DEPRESSION SCREENING 10/12/2024 Respiratory Syncytial Virus (RSV) Vaccine Pt: or [...] patient's age to complete this topic MENINGOCOCCAL (Group B) VACCINE Aged Out No longer eligible based on patient's age to complete this topic MENINGOCOCCAL VACCINE Aged Out No dudley selwyn eligible based on patient's age to complete this topic Advance Directives * Full Code (Latest Code Status on File) Date Activated Date Inactivated Comments 06/20/2009 1:37 PM 06/22/2009 1:11 AM Care Teams Wire Setter Relationship Specialty Start Date End Date Savanna Walter DO OIG SANCTIONED!! DO NOT USE!! PCP - General 06/20/09
--- OUTSIDE RECORDS SUMMARY | 2024-11-16 17:23 | XMS_ITS | Referral Summary ---
Author Organization [facility] Address [address] [place] [address] Care Team Providers Care Mail Processing Associate Name Role Phone Savanna Walter DO Primary Care Provider Unavailabl e Source Comments [facility],non-owned Affiliates and Associated Physician Practices is amultiple site organization consisting of ambulatory clinics and hospital sitesin [place], [place], [place] and [place]. This disclosure is being madepursuant to the Care Everywhere program and may not contain all information available regarding this patient. Last updated 18.[facility] Encounters Date Type Department Care Team Description 10/07/2024 Lab Requisition [facility] - Pathology Lab [address] [place] [address] Artis García MD Illness, unspecified from Last [...] 1:37 PM 06/22/2009 1:11 AM Care Teams Mail Processing Associate Relationship Specialty Start Date End Date Savanna Walter DO OIG SANCTIONED!! DO NOT USE!! PCP - General 06/20/09
--- OUTSIDE RECORDS SUMMARY | 2024-11-16 17:23 | XMS_ITS | Referral Summary ---
Author Organization [facility] [address] [place] [id number] Care Team Providers Care Captain Airline Pilot Name Role Phone Derik Rios MD Primary Care Provider [phone] Encounters Date Type Department Care Team Description 10/03/2024 Orders Only [facility] Primary Care at [address] [address] Chester Cox MD from Last 3 Months Allergies Active Allergy Reactions Criticality Noted Date Comments Ezetimibe Other (See comments) Low 05/08/2021 Gave patient cold symptoms Medications aspirin-calcium carbonate 81 mg-300 mg calcium(777 mg) tablet Take 81 mg by mouth daily 06/21/2009 Active omega 8-toe-til-fish oil 1,000 mg (120 mg-180 mg) capsule Active clopidogreL (PLAVIX) 75 mg tablet TAKE 1 TABLET DAILY 90 tablet 3 12/07/2023 Active sertraline (ZOLOFT) 50 mg tablet Take 1 tablet (50 mg total) by mouth daily 90 tablet 3 12/21/2023 5 Active lisinopriL (PRINIVIL,ZESTRI L) 40 mg tablet Take 1 tablet (40 mg total) by mouth daily 90 tablet 3 06/15/2024 Active amLODIPine (NORVASC) 10 mg tablet Take 1 tablet (10 mg total) by mouth daily 90 tablet 3 07/04/2024 Active rosuvastatin (CRESTOR) 40 mg tablet TAKE 1 TABLET DAILY 90 tablet 3 08/12/2024 Active Active Problems Problem Noted Date Diagnosed Date Encounter to establish care 12/08/2023 Assessment & Plan (12/08/2023 9:00 AM DIRECTOR GLOBAL STRATEGIC PUBLISHER SALES): A(n) initial well visit to establish care has been performed today. Kirk Ballard is not up to date on screening tests. He is in need of Prostate screening, hepatitis C screening, Colon cancer screening, and Cholesterol screening. He declines colon screening (both Cologuard and colonoscopy)- he is aware of the risks. He is not up to date on needed preventative vaccinations; He is in need of Tdap/Td and Covid-19 (booster). We discussed healthy lifestyle habits, educational material has been given. Medications reviewed, changes documented as per the medical record and discussed with patient along with risks vs benefits. Return in 6 months Bradycardia 05/07/2022 Coronary artery disease invo lving torres martinez coronary artery of torres martinez heart without angina pectoris 05/07/2022 Hyperlipemia 05/07/2022 Immunizations Name Administration Dates Next Due Hep A, Adult 09/04/2004,02/28/2004 Influenza, Unspecified 12/08/2023(Deferr ed: Patient Refused),10/13/2022(Deferred: Patient Refused),07/13/2022(Deferred: Patient Refused) Td, adsorbed 02/28/2004 Tdap 12/08/2023 Social History Tobacco Use Types Packs/Day Years Used Date Smoking Tobacco: Never Smokeless Tobacco: Never Tobacco Cessation:Counseling Given: Not Answered Alcohol Use Standard Drinks/Week Comments Not Currently 0 (1 standard drink = 0.6 oz pur e alcohol) AUDIT-C Answer Date Recorded Q1: How often do you have a drink containing alc ohol? Monthly or less 12/08/2023 Q2: How many drinks containi ng alcohol do you have on a typical day when you are drinking? 1 or 2 12/08/2023 Q3: How often do you have si x or more drinks on one occasion? 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 file Not on file Last Filed Vital Signs Vital Sign Reading Time Taken Comments Blood Pressure 164/91 06/15/2024 10:29 AM CDT Pulse 48 06/15/2024 10:29 AM CDT Temperature 36.7 C (98 F) 12/08/2023 8:31 AM DIRECTOR GLOBAL STRATEGIC PUBLISHER SALES Respiratory Rate 16 06/15/2024 10:29 AM CDT Oxygen Saturation 96% 12/08/2023 8:31 AM DIRECTOR GLOBAL STRATEGIC PUBLISHER SALES Inhaled Oxygen Concentration - - Weight 101.6 kg (224 lb) 06/15/2024 10:29 AM CDT Height 182.9 cm (6') 12/08/2023 8:31 AM DIRECTOR GLOBAL STRATE[employer]IC PUBLISHER SALES Body Mass Index 30.38 12/08/2023 8:31 AM DIRECTOR GLOBAL STRATEGIC PUBLISHER SALES Plan of Treatment Not on file Procedures Procedure Name Priority Date/Time Associated Diagnosis Comments CT ABDOMEN PELVIS W CONTRAST Schedule Routine, Read Routine (OP Routine) 10/02/2024 1:10 PM DIRECTOR GLOBAL STRATEGIC PUBLISHER SALES HEPATITIS C ANTIBODY Routine 12/08/2023 9:13 AM DIRECTOR GLOBAL STRATEGIC PUBLISHER SALES Encounter for hepatitis C screening test for low risk patient PSA SCREEN Routine 12/08/2023 9:13 AM DIRECTOR GLOBAL STRATE[employer]IC PUBLISHER SALES Screening for malignant neoplasm of prostate from Last 3 Months or Most Recently Relevant to Health Maintenance Results * CT Abdomen Pelvis W Contrast (10/02/2024 1:10 PM DIRECTOR GLOBAL STRATEGIC PUBLISHER SALES) Anatomical Region Laterality Modality Body N/A Computed Tomogra phy Chester Cox MD IM CT PROCEDURES Final Result * (ABNORMAL) PSA screen (12/08/2023 9:13 AM DIRECTOR GLOBAL STRATEGIC PUBLISHER SALES) PSA-Total 7.04(H) <=5.40 ng/mL ELIJAH PEREZ Comment: Interpretive Data AGE SEX REFERENCE INTERVAL 0 minutes-150 years Female None 0 minutes-49 years Male None 50-59 years Male 0-3.90 60-69 years Male 0-5.40 70-79 years Male 0-6.20 80-150 years Male 0-6.20 The Shreya PSA Total assay procedure was used. Results from different manufacturers or methods may not be comparable. Serial testing should be performed using the same method. Current interpretive data last revised 22. Blood 12/08/2023 9:13 AM DIRECTOR GLOBAL STRATEGIC PUBLISHER SALES 12/08/2023 3:00 PM DIRECTOR GLOBAL STRATEGIC PUBLISHER SALES Derik Rios MD LAB BLOOD ORDERABLES Final Result Performing Organization Address [facility] de Phone Number LUISATARUN ANA [address] Department [place] [address] * Hepatitis C antibody Blood (12/08/2023 9:13 AM DIRECTOR GLOBAL STRATEGIC PUBLISHER SALES) Hep C Ab Nonreactive Nonreactive ELIJAH PEREZ Comment: Interpretive Data Nonreactive: Antibodies to HCV not detected. Does NOT exclude the possibility of recent exposure to HCV. Equivocal: Equivocal for HCV antibodies. Supplemental molecular testing will be automatically performed to determine infection status in accordance with current CDC screening recommendations. Reactive: Positive for HCV antibodies. This may represent current or past HCV infection. Supplemental molecular testing will be automatically performed to determine current infection status in accordance with current CDC screening recommendations. Interpretive data was last revised on 2019. Blood 12/08/2023 9:13 AM DIRECTOR GLOBAL STRATEGIC PUBLISHER SALES 12/08/2023 3:00 PM DIRECTOR GLOBAL STRATE[employer]IC PUBLISHER SALES Derik Rios MD LAB MICROBIOLOGY - GENERAL ORDERABLES Edited Result - Final Performing Organization Address [facility] de Phone Number ELIJAH EPREZ [address] Department [place] [address] from Last 3 Months or Most Recently Relevant to Health Maintenance Insurance [facility] ACCESS CHOICE ANTHEM ACCESS CHOICE Care Teams Captain Airline Pilot Relationship Specialty Start Date End Date Derik Rios MD [address] [place] [address] PCP - General Family Medicine 12/08/23
--- OUTSIDE RECORDS SUMMARY | 2024-11-16 17:23 | XMS_ITS | Patient Health Summary ---
Author Organization [facility] Address [address] [place] [address] Care Team Providers Care Workers Compensation Administrator Name Role Phone Savanna Walter DO Primary Care Provider Unavailabl e Note from [facility],non-owned Affiliates and Associated Physician Practices is amultiple site organization consisting of ambulatory clinics and hospital sitesin [place], [place], [place] and [place]. This disclosure is being madepursuant to the Care Everywhere program and may not contain all information available regarding this patient. Last updated 18.[facility] Allergies No known active allergies Medications * [...] included. CK 296(H) 55.0 - 170.0 U/L [facility] CK-MB 12.9 ng/ml [facility] Interpretation CK-MB [facility] Comment: An abrupt rise/fall of CKMB over 24 hours is an acute injury pattern. BLOOD SPECIMEN / Unknown 06/21/2009 4:05 AM CDT 06/21/2009 4:11 AM CDT Sky Birmingham MD LAB - CHEMISTRY [address] [facility] Organization Address City/State/ZIP Co de Phone Number [facility] [address] [place] [address] Care Teams Workers Compensation Administrator Relationship Specialty Start Date End Date Savanna Walter DO OIG SANCTIONED!! DO NOT USE!! PCP - General 06/20/09
--- OUTSIDE RECORDS SUMMARY | 2024-11-16 17:23 | XMS_ITS | Clinical Summary ---
Author Organization [facility] [address] [place] [phone] Care Team Providers Care Paint Grinder [employer] Name Role Phone Derik Rios MD Primary Care Provider [phone]- [phone] Allergies Active Allergy Reactions Criticality Noted Date Comments Ezetimibe Other (See comments) Low 05/08/2021 Gave patient cold symptoms Medications aspirin-calcium carbonate 81 mg-300 mg calcium(777 mg) tablet Take 81 mg by mouth daily 06/21/2009 Active omega 2-ovr-uaf-fish oil 1,000 mg (120 mg-180 mg) capsule [...] by mouth daily 90 tablet 3 07/04/2024 5 Active rosuvastatin (CRESTOR) 40 mg tablet TAKE 1 TABLET DAILY 90 tablet 3 08/12/2024 Active Active Problems Problem Noted Date Diagnosed Date Encounter to establish care 12/08/2023 Assessment & Plan (12/08/2023 9:00 AM ENVIRONMENTAL PLANNER): A(n) initial well visit to establish care [...] Bradycardia 05/07/2022 Coronary artery disease invo lving [place] coronary artery of [place] heart without angina pectoris 05/07/2022 Hyperlipemia 05/07/2022 Encounters Date Type Department Care Team Description 10/03/[address] [facility] Primary Care at [address] [address] Chester Cox MD from Last 3 Months Immunizations Name Administration Dates Next Due Hep A, Adult 09/04/2004,02/28/2004 Influenza, Unspecified 12/08/2023(Deferr ed: Patient Refused),10/13/2022(Deferred: Patient Refused),07/13/2022(Deferred: Patient Refused) Td, adsorbed 02/28/2004 Tdap 12/08/2023 Surgical History Surgery Date Site/Laterality Comments CARDIAC STENT PLACEMENT Medical History Medical History Date Comments Hyperlipidemia CAD S/P percutaneous coronary angioplasty Bradycardia 05/07/2022 Family History Medical History Relation Name Comments Coronary artery disease Father Heart attack Father Heart disease Father Heart attack Maternal Grandfather Rheumatic fever Maternal Grandfather Heart disease Maternal Grandmother Coronary artery disease Mother Heart disease Mother Lung cancer Mother No Known Problems Paternal Grandfather No Known Problems Paternal Grandmother No Known Problems Sister Relation Name Status Comments Father Maternal Grandfather Maternal Grandmother Mother Paternal Grandfather Paternal Grandmother Sister Alive Social History Tobacco Use Types Packs/Day Years [...] on file Legal Sex Male 5:22 PM ENVIRONMENTAL PLANNER Gender Identity Not on file Sexual Orientation Not on file 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 file Not on file Obstetrics History Last Filed Vital Signs Vital Sign Reading Time Taken Comments Blood Pressure 164/91 06/15/2024 10:29 AM CDT Pulse 48 06/15/2024 10:29 AM CDT Temperature 36.7 C (98 F) 12/08/2023 8:31 AM ENVIRONMENTAL PLANNER Respiratory Rate 16 06/15/2024 10:29 AM CDT Oxygen Saturation 96% 12/08/2023 8:31 AM ENVIRONMENTAL PLANNER Inhaled Oxygen Concentration - - Weight 101.6 kg (224 lb) 06/15/2024 10:29 AM CDT Height 182.9 cm (6') 12/08/2023 8:31 AM ENVIRONMENTAL PLANNER Body Mass Index 30.38 12/08/2023 8:31 AM ENVIRONMENTAL PLANNER Plan of Treatment Health Maintenance Due Date Last Done Comments Hepatitis B Screening 1980 Covid-19 Vaccine ( season) 2024 10/20/2021, 01/14/2021, 12/23/2020 Influenza Vaccine (#1) 2024 Depression Screening 12/08/2024 12/08/2023 Regular Well Visit/Exam 18-64 12/08/2024 12/08/2023 Zoster Vaccine (1 of 2) 12/08/2024 Post poned from 2012 (Insurance / Financial) Prostate Cancer Screening-PSA 12/08/2025 12/08/2023 DTaP/Tdap/Td Vaccine (2 - Td or Tdap) 12/08/2033 12/08/2023, 02/28/2004 Hepatitis C Screening Completed 12/08/2023 Colon Cancer Screening-Colonoscopy Discontinued Pneumococcal vaccine <65 Aged Out No longer eligible based on patient's age to complete this topic Procedures Procedure Name Priority Date/Time Associated Diagnosis Comments CT ABDOMEN PELVIS W CONTRAST Schedule Routine, Read Routine (OP Routine) 10/02/2024 1:10 PM ENVIRONMENTAL PLANNER HEPATITIS C ANTIBODY Routine 12/08/2023 9:13 AM ENVIRONMENTAL PLANNER Encounter for hepatitis C screening test for low risk patient PSA SCREEN Routine 12/08/2023 9:13 AM ENVIRONMENTAL PLANNER Screening for malignant neoplasm of prostate from Last 3 Months or Most Recently Relevant to Health Maintenance Results * CT Abdomen Pelvis W Contrast (10/02/2024 1:10 PM ENVIRONMENTAL PLANNER) Anatomical Region Laterality Modality Body N/A Computed Tomogra phy Chester Cox MD IMG CT PROCEDURES Final Result * (ABNORMAL) PSA screen (12/08/2023 9:13 AM ENVIRONMENTAL PLANNER) PSA-Total 7.04(H) <=5.40 ng/mL ELIJAH PEREZ Comment: [...] last revised 22. Blood 12/08/2023 9:13 AM ENVIRONMENTAL PLANNER 12/08/2023 3:00 PM ENVIRONMENTAL PLANNER us Derik Rios MD LAB BLOOD ORDERABLES Final Result ELIJAH PEREZ [id number] Department [place] [address] * Hepatitis C antibody Blood (12/08/2023 9:13 AM ENVIRONMENTAL PLANNER) Hep C Ab Nonreactive Nonreactive ELIJAH PEREZ [...] revised on 2019. Blood 12/08/2023 9:13 AM ENVIRONMENTAL PLANNER 12/08/2023 3:00 PM ENVIRONMENTAL PLANNER Derik Rios MD LAB MICROBIOLOGY - GENERAL ORDERABLES Edited Result - Final ELIJAH [id number] Department of Laboratories [place], [place] [id number] from Last 3 Months or Most Recently Relevant to Health Maintenance Insurance Handseeing Information ACCESS CHOICE ANTHEM ACCESS CHOICE Care Teams [employer] Relationship Specialty Start Date End Date Derik Rios MD [address] [place] [address] PCP - General Family Medicine 12/08/23
--- OUTSIDE RECORDS SUMMARY | 2024-11-16 17:24 | XMS_ITS | Clinical Summary ---
Author Organization [facility] Vandana Perla Address [address] [place] [address] Care Team Providers Care Clinical Nursing Assistant Name Role Phone Unavailable Primary Care Provider Unavailabl e Allergies Active Allergy Reactions Criticality Noted Date Comments Ezetimibe Other (See Comments) Low 05/08/2021 Gave patient cold symptoms Medications sertraline (ZOLOFT) 50 mg tablet Take 50 mg by mouth daily. 4 12/21/19 25 Active lisinopriL (PRINIVIL) 40 mg tablet Take 40 mg by mouth daily. 4 Active rosuvastatin (CRESTOR) 40 mg tablet Take 1 Tablet by mouth daily. 4 Active DOCOSAHEXAENOIC ACID ORAL Active amLODIPine (NORVASC) 10 mg tablet Take 10 mg by mouth daily. 4 07/04/20 25 Active bicalutamide (CASODEX) 50 mg tablet Take 1 Tablet (50 mg) by mouth daily. 30 Tablet 1 5 Active predniSONE (DELTASONE) 5 mg tablet Take 1 Tablet (5 mg) by mouth 2 times daily with meals. 60 Tablet 3 5 Active abiraterone (ZYTIGA) 250 mg tablet Take 4 Tablets (1,000 mg) by mouth daily before breakfast. 120 Tablet 4 5 Active abiraterone (ZYTIGA) 250 mg tablet Take 4 Tablets (1,000 mg) by mouth daily before breakfast. 120 Tablet 4 5 11/10/19 25 Discontinu ed(Reorder ) Active Problems No known active problems Encounters Date Type Department Care Team Description 11/10/2024 Specialty Pharmacy [facility] [address] [place] [address] [place] [address] Nayely Stewart, PHARMACIST 11/10/2024 Specialty Pharmacy [facility] [address] [place] [address] [place] [address] Nayely Stewart, PHARMACIST Specialty Pharmacy Refill Coordination 11/10/2024 Refill [facility] [address] [place] [phone] James Mackenzie MD 11/10/2024 Specialty Pharmacy [facility] [address] [place] [address] [place] [address] Nayely Stewart, PHARMACIST Specialty Pharmacy Prior Auth Coordination 11/09/2024 Orders Only [facility] [address] [place] [phone] James Mackenzie MD 11/08/2024 4:30 PM GRAFFITI CLEANER Telephone Check Up [facility] [address] [place] [phone] James Mackenzie MD Prostate cancer (CMS/HCC) (Primary Dx) 11/03/2024 External Device Data STL ABSTRACTION Provider, Abstract 10/26/2024 Telephone [facility] [address] [place] [address] James Mackenzie MD [employer] testing 10/25/2024 External Device Data STL ABSTRACTION Provider, Abstract 10/25/2024 External Device Data STL ABSTRACTION Provider, Abstract 10/25/2024 Orders Only [facility] - [address] [place] [address] James Mackenzie MD 10/24/2024 Orders Only [facility] - [address] [place] [address] James Mackenzie MD 10/19/2024 3:00 PM GRAFFITI CLEANER Office Visit [facility] [address] [place] [address] James Mackenzie MD Prostate cancer (CMS/HCC) (Primary Dx); Colorectal cancer, stage IV (CMS/HCC) 10/19/2024 Orders Only [facility] [address] [place] [address] James Mackenzie MD Prostate cancer (CMS/HCC) (Primary Dx); Colorectal cancer, stage IV ([facility]/HCC) from Last 3 Months Family History Medical History Relation Name Comments Heart Disease Father Heart Disease Mother Lung Cancer Mother No Known Problems Sister Relation Name Status Comments Father Mother Sister Alive Social History Tobacco Use Types Packs/Day Years Used Date Smoking Tobacco: Never Smokeless Tobacco: Never Tobacco Cessation:Counseling Given: Not Answered Alcohol Use Standard Drinks/Week Comments Yes 0 (1 standard drink = 0.6 oz pure alcohol) occassionally 6 pack will last a year Sex and Gender Information Value Date Recorded Sex Assigned at Not on file Legal Sex Male 11:45 PM CDT Gender Identity Not on file Sexual Orientation Not on file Last Filed Vital Signs Vital Sign Reading Time Taken Comments Blood Pressure 161/91 10/19/2024 3:30 PM GRAFFITI CLEANER Pulse 60 10/19/2024 3:24 PM GRAFFITI CLEANER Temperature 36.6 C (97.9 F) 10/19/2024 3:24 PM GRAFFITI CLEANER Respiratory Rate 16 10/19/2024 3:24 PM GRAFFITI CLEANER Oxygen Saturation 95% 10/19/2024 3:24 PM GRAFFITI CLEANER Inhaled Oxygen Concentration - - Weight 102.5 kg (226 lb) 10/19/2024 3:24 PM GRAFFITI CLEANER Height 180.3 cm (5' 11 ) 10/19/2024 3:24 PM GRAFFITI CLEANER Body Mass Index 31.52 10/19/2024 3:24 PM GRAFFITI CLEANER Plan of Treatment Health Maintenance Due Date Last Done Comments Pre-Diabetes and Diabetes Screening 1960 ZOSTER VACCINE (1 of 2) 2012 INFLUENZA VACCINE (#1) 2024 DTAP/TDAP/TD VACCINES (2 - Td or Tdap) 12/08/2033 RSV VACCINE (60+ or ) (1 - 1-dose 75+ series) 2037 Procedures Procedure Name Priority Date/Time Associated Diagnosis Comments [facility] XF Routine 10/27/2024 10:08 PM GRAFFITI CLEANER Prostate cancer (CMS/HCC) Colorectal cancer, stage IV (CMS/HCC) PET TUMOR GA68 PSMA IMG W CT SKB MDTH Routine 10/25/2024 4:03 PM GRAFFITI CLEANER [facility]T DNA AND RNA Routine 10/19/2024 4:08 PM GRAFFITI CLEANER Prostate cancer (CMS/HCC) Colorectal cancer, stage IV (CMS/HCC) [facility] XT NORMAL BLOOD Routine 10/19/2024 4:08 PM GRAFFITI CLEANER Prostate cancer (CMS/HCC) Colorectal cancer, stage IV (CMS/HCC) CEA Routine 10/19/2024 12:56 PM GRAFFITI CLEANER from Last 3 Months Results * [facility] XF (10/27/2024 10:08 PM GRAFFITI CLEANER) Reason for Study To identify mutations relevant to patient's cancer. 10/27/2024 10:08 PM GRAFFITI CLEANER [facility] Genetic Diseases Assessed Cancer 10/27/2024 10:08 PM GRAFFITI CLEANER [facility] Description of Ranges of DNA Sequences Examined 105 gene liquid biopsy 10/27/2024 10:08 PM GRAFFITI CLEANER [facility] Overall Interpretation positive 10/27/2024 10:08 PM GRAFFITI CLEANER [facility] [id number] 10/27/2024 10:08 PM GRAFFITI CLEANER [facility] Comment:[facility] link Trial Count 1 10/27/2024 10:08 PM GRAFFITI CLEANER [facility]: Clinical Trial Match 1 Clinical Trial NCT ID: [id number] Clinical Trial Title: Study of ATRN-119 in Patients with Advanced Solid Tumors Clinical Trial URL: https://clini caltrials.gov /ct2/show/NCT [id number] Clinical Phase: Phase 1/Phase 2 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 10/27/2024 10:08 PM GRAFFITI CLEANER [facility] Blood specimen (specimen) 10/21/2024 12:05 AM GRAFFITI CLEANER Narrative This result has genomic variants that were not included in this document. us James Mackenzie MD MOLECULAR ORDERABLES Final Resu Performing Organization Address [facility] de Phone Number [facility] [address] [facility], [address] [place] [address], [facility] [address] [facility], [address] [place] [address] * PET TUMOR GA68 ILLUCIX PSMA IMG W CT SKB MD (10/25/2024 4:03 PM GRAFFITI CLEANER) Anatomical Region Laterality Modality Other us James Mackenzie MD PE ORDERABLES Final Result * [facility] NORMAL BLOOD (10/19/2024 4:08 PM GRAFFITI CLEANER) [facility] 10/19/2024 11:00 PM GRAFFITI CLEANER [facility] Comment:See NGS Report for R esults. Blood specimen (specimen) 10/19/2024 4:08 PM GRAFFITI CLEANER 10/19/2024 4:09 PM GRAFFITI CLEANER us James Mackenzie MD MOLECULAR ORDERABLES Final Resu lt Performing Organization Address [facility] de Phone Number [facility] [address] [facility], [address] [place] [address], [facility] [address], [address] [place] [address] * CEA (10/19/2024 12:56 PM GRAFFITI CLEANER) Blood James Mackenzie MD CHEMISTRY ORDERABLES Final Resu lt from Last 3 Months Insurance [facility] BLUE ACCESS CHOICE RX [employer]
--- OUTSIDE RECORDS SUMMARY | 2024-11-16 17:24 | XMS_ITS | Encounter Summary ---
Author Organization [facility] Address [address] [place] [address] Care Team Providers Care Set Up Mechanic Name Role Phone Savanna Walter DO Primary Care Provider Unavailstanley e Encounter Details Date Type Department Care Team (Late st Contact Info) Description 10/07/2024 Lab Requisition [facility] - Pathology Lab [address] [place] [phone] Artis García MD [address] [place] [phone] Illness, unspecified Social History Tobacco Use Types Packs/Day Years Used Date Smoking Tobacco: Never Alcohol Use Standard Drinks/Week Comments Yes 0 (1 standard drink = 0.6 oz pur e alcohol) Sex and Gender Information Value Date Recorded Sex Assigned at Not on file Gender Identity Not on file Sexual Orientation Not on file documented as of this encounter Plan of Treatment Pending Results Name Type Priority Associated Diagnoses Date /Time SLIDE PREP HISTOLOGY Pathology Cytology Routine Illness, unspecified 10/03/2024 documented as of this encounter Visit Diagnoses Diagnosis Illness, unspecified documented in this encounter Care Teams Set Up Mechanic Relationship Specialty Start Date End Date Savanna Walter DO OIG SANCTIONED!! DO NOT USE!! PCP - General 06/20/09 documented as of this encounter
[2024-11-16 18:03] LABS: INR 0.8; Prothrombin Time 11.8 Seconds (11.1-14.7)
== END 2024-11-16 17:21 | disposition home or self-care (01) ==
LOC: ANHLAB 17:21
PROVIDERS: Visit Provider Surgery
DX: C61 Malignant neoplasm of prostate (principal); Z01.818 Encounter for other preprocedural examination
CPT/HCPCS: 36415; 85610; 85730

== ENCOUNTER 2024-11-21 01:57 | Day surgery (SDC) | payer BC, SELFPAY ==
[2024-11-15 14:55] VITALS: BMI 29.9
--- NOTE | 2024-11-15 15:01 | PC.NURSE ---
Report to the Outpatient Waiting Room, entrance under the green pavilion located off [facility], at time _0930_ on date _[phone]_. Planned Procedure Time: _1130_.? Time changes happen often and if your time is changed the preop area will call you the afternoon before. - You and your visitor will be asked to self-screen and do not enter if you have any COVID symptoms. Please call surgeon if you need to reschedule. - A mask is optional within the hospital at this time. Patients may have clear liquids (water, carbonated beverages, clear teas, apple juice) until 3 hours prior to surgery with a maximum of 20 ounces. - No food from midnight until time of surgery and no smoking. This includes no chewing gum, candy or mints. Take only the following medications with a SIP of water on the morning of surgery: ___None____ DO NOT STOP ANY OF YOUR OTHER PRESCRIPTION MEDICATIONS PRIOR TO SURGERY EXCEPT THE FOLLOWING Medications to discontinue per physician ___None Please no make-up, nail sami, hairspray, perfume, deodorant, or body powder the day of surgery.? No jewelry (including any body piercings) or valuables the day of surgery, leave them at home.? Please take a shower or bath the night before, or the morning of, surgery with an antibacterial soap.? Wear comfortable, loose fitting clothing.? - Jewelry must be removed prior to entering the operating room.? Rings and piercings that are not removed may be cut off. - The hospital will not accept responsibility for valuables.? - Please leave all valuables, including medications, at home the day of surgery. If you are going home after surgery, a licensed production truck driver must drive you home.? - NO public transportation without another adult if you receive anesthesia. - We recommend that an adult stay with you for 24 hours following discharge. - We also recommend that you do not drive, make important decision, drink alcoholic beverages, or take any drugs that were not prescribed by your health care provider for at least 24 hours after your discharge time. Hold all vitamins and supplements including Fish oil for 3 days per anesthesiologist. Follow any additional instructions given to you from your surgeon. Telephone instructions given to __Don__and asked if any additional questions and then verbalized understanding. Patient advised to call surgeon office or pre surgery nurse liaison [phone] if any additional questions
--- NOTE | ~2024-11-21 | XR_ITS ---
EXAMINATION: XR chest port-a-cath/central DATE: 11/21/2024 14:24 INDICATION: Port placement. TECHNIQUE: A single frontal view of the chest was obtained. COMPARISON: PET/CT 10/25/2024 FINDINGS: There are small bilateral pleural effusions. There is mild atelectasis in the mid and lower lung zones. No pneumothorax. The heart size is normal. There is a right subclavian port with tip in superior vena cava. IMPRESSION: 1. Port tip in superior vena cava. 2. Mild atelectasis in the mid and lower lung zones. 3. Small pleural effusions. Reviewed, dictated and finalized at location A. [facility]
--- NOTE | ~2024-11-21 | XR_ITS ---
EXAMINATION: XR fl guide central line place DATE: 11/21/2024 12:27 INDICATION: Port placement. TECHNIQUE: 10 intraoperative fluoroscopic views of the chest were obtained. I was not present. Fluoro scopy exposure time was 26 seconds. COMPARISON: Chest single view 11/21/2024 FINDINGS: There is a right subclavian port with tip at superior cavoatrial junction. IMPRESSION: 1. Port tip at superior cavoatrial junction. Reviewed, dictated and finalized at location A. LATHER
--- OUTSIDE RECORDS SUMMARY | 2024-11-21 02:00 | XMS_ITS | Referral Summary ---
Author Organization [facility] Address [address] [place] [address] Care Team Providers Care Cash Register Repairer Name Role Phone Savanna Walter DO Primary Care Provider Unavailabl e Source Comments [facility],non-owned Affiliates and Associated Physician Practices is amultiple site organization consisting of ambulatory clinics and hospital sitesin [place], [place] and [place]. This disclosure is being madepursuant to the Care Everywhere program and may not contain all information available regarding this patient. Last updated 18.[facility] Encounters Date Type Department Care Team Description 10/07/2024 Lab Requisition [facility] - Pathology Lab [address] [place] [address] Artis García MD Illness, unspecified [...] 1:37 PM 06/22/2009 1:11 AM Care Teams Cash Register Repairer Relationship Specialty Start Date End Date Savanna Walter DO OIG SANCTIONED!! DO NOT USE!! PCP - General 06/20/09
--- OUTSIDE RECORDS SUMMARY | 2024-11-21 02:00 | XMS_ITS | Patient Health Summary ---
Author Organization [facility] Address [address] [place] [address] Care Team Providers Care Motor Scooter Repairer Name Role Phone Savanna Walter DO Primary Care Provider Unavailabl e Note from [facility],non-owned Affiliates and Associated Physician Practices is amultiple site organization consisting of ambulatory clinics and hospital sitesin [place], [place] and [place]. This disclosure is being madepursuant to the Care Everywhere program and may not contain all information available regarding this patient. Last updated 18.[facility] Allergies No known active allergies Medications * [...] 170.0 U/L [facility] CK-MB 12.9 ng/ml [facility] Interpretation CK-MB [facility] Comment: An abrupt rise/fall of CKMB over 24 hours is an acute injury pattern. BLOOD SPECIMEN / Unknown 06/21/2009 4:05 AM CDT 06/21/2009 4:11 AM CDT Sky Birmingham MD LAB - CHEMISTRY [address] [facility] Organization Address City/State/ZIP Co de Phone Number [facility] [address] [place] [address] Care Teams Motor Scooter Repairer Relationship Specialty Start Date End Date Savanna Walter DO OIG SANCTIONED!! DO NOT USE!! PCP - General 06/20/09
--- OUTSIDE RECORDS SUMMARY | 2024-11-21 02:00 | XMS_ITS | Clinical Summary ---
Author Organization [facility] [address] [place] [address] Care Team Providers Care Manager Transfer Name Role Phone Derik Rios MD Primary Care Provider [phone]- [phone] Allergies Active Allergy Reactions Criticality Noted Date Comments Ezetimibe Other (See comments) Low 05/08/2021 Gave patient cold symptoms Medications aspirin-calcium carbonate 81 mg-300 mg calcium(777 mg) tablet Take 81 mg by mouth daily 06/21/2009 Active omega 5-bah-pwf-fish oil 1,000 mg (120 mg-180 mg) capsule [...] 12/08/2023 Assessment & Plan (12/08/2023 9:00 AM PILOT SAFETY INSPECTOR): A(n) initial well visit to establish care [...] Bradycardia 05/07/2022 Coronary artery disease invo lving [place] coronary artery of [place] heart without angina pectoris 05/07/2022 Hyperlipemia 05/07/2022 Encounters Date Type Department Care Team Description 10/03/2024 Orders Only [facility] Primary Care at [address] [address] Chester Cox MD from [...] on file Legal Sex Male 5:22 PM PILOT SAFETY INSPECTOR Gender Identity Not on file Sexual Orientation Not on file 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 file Not on file Obstetrics History Last Filed Vital Signs Vital Sign Reading Time Taken Comments Blood Pressure 164/91 06/15/2024 10:29 AM CDT Pulse 48 06/15/2024 10:29 AM CDT Temperature 36.7 C (98 F) 12/08/2023 8:31 AM PILOT SAFETY INSPECTOR Respiratory Rate 16 06/15/2024 10:29 AM CDT Oxygen Saturation 96% 12/08/2023 8:31 AM PILOT SAFETY INSPECTOR Inhaled Oxygen Concentration - - Weight 101.6 kg (224 lb) 06/15/2024 10:29 AM CDT Height 182.9 cm (6') 12/08/2023 8:31 AM PILOT SAFETY INSPECTOR Body Mass Index 30.38 12/08/2023 8:31 AM PILOT SAFETY INSPECTOR Plan of Treatment Health Maintenance Due Date [...] Read Routine (OP Routine) 10/02/2024 1:10 PM PILOT SAFETY INSPECTOR HEPATITIS C ANTIBODY Routine 12/08/2023 9:13 AM PILOT SAFETY INSPECTOR Encounter for hepatitis C screening test for low risk patient PSA SCREEN Routine 12/08/2023 9:13 AM PILOT SAFETY INSPECTOR Screening for malignant neoplasm of prostate from Last 3 Months or Most Recently Relevant to Health Maintenance Results * CT Abdomen Pelvis W Contrast (10/02/2024 1:10 PM PILOT SAFETY INSPECTOR) Anatomical Region Laterality Modality Body N/A Computed Tomogra phy Chester Cox MD IMG CT PROCEDURES Final Result * (ABNORMAL) PSA screen (12/08/2023 9:13 AM PILOT SAFETY INSPECTOR) PSA-Total 7.04(H) <=5.40 ng/mL [facility] P[facility] Comment: [...] last revised 22. Blood 12/08/2023 9:13 AM PILOT SAFETY INSPECTOR 12/08/2023 3:00 PM PILOT SAFETY INSPECTOR us Derik Rios MD LAB BLOOD ORDERABLES Final Result [facility] P[facility] [id number] [place] [address] * Hepatitis C antibody Blood (12/08/2023 9:13 AM PILOT SAFETY INSPECTOR) Hep C Ab Nonreactive Nonreactive ELIJAH PEREZ [...] revised on 2019. Blood 12/08/2023 9:13 AM PILOT SAFETY INSPECTOR 12/08/2023 3:00 PM PILOT SAFETY INSPECTOR Derik Rios MD LAB MICROBIOLOGY - GENERAL ORDERABLES Edited Result - Final ELIJAH [id number] Department of Laboratories [place], [place] [phone] from Last 3 Months or Most Recently Relevant to Health Maintenance Insurance [employer] ACCESS CHOICE ANTHEM ACCESS CHOICE Care Teams Manager Transfer Relationship Specialty Start Date End Date Derik Rios MD [address] [place] [address] PCP - General Family Medicine 12/08/23
--- OUTSIDE RECORDS SUMMARY | 2024-11-21 02:00 | XMS_ITS | Referral Summary ---
Author Organization [facility] [address] [place] [address] Care Team Providers Care Supervisor Diagnostic Name Role Phone Derik Rios MD Primary Care Provider [phone]- [phone] Encounters Date Type Department Care Team Description 10/03/2024 Orders Only [facility] Primary Care at [address] [address] Chester Cox MD from Last 3 Months Allergies Active Allergy Reactions Criticality Noted Date Comments Ezetimibe Other (See comments) Low 05/08/2021 Gave patient cold symptoms Medications aspirin-calcium carbonate 81 mg-300 mg calcium(777 mg) tablet Take 81 mg by mouth daily 06/21/2009 Active omega 0-oyt-xth-fish oil 1,000 mg (120 mg-180 mg) capsule [...] 12/08/2023 Assessment & Plan (12/08/2023 9:00 AM DIKE SUPERVISOR): A(n) initial well visit to establish care [...] Bradycardia 05/07/2022 Coronary artery disease invo lving [place] coronary artery of [place] heart without angina pectoris 05/07/2022 Hyperlipemia 05/07/2022 [...] on file Legal Sex Male 5:22 PM DIKE SUPERVISOR Gender Identity Not on file Sexual Orientation Not on file 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 file Not on file Last Filed Vital Signs Vital Sign Reading Time Taken Comments Blood Pressure 164/91 06/15/2024 10:29 AM CDT Pulse 48 06/15/2024 10:29 AM CDT Temperature 36.7 C (98 F) 12/08/2023 8:31 AM DIKE SUPERVISOR Respiratory Rate 16 06/15/2024 10:29 AM CDT Oxygen Saturation 96% 12/08/2023 8:31 AM DIKE SUPERVISOR Inhaled Oxygen Concentration - - Weight 101.6 kg (224 lb) 06/15/2024 10:29 AM CDT Height 182.9 cm (6') 12/08/2023 8:31 AM DIKE SUPERVISOR Body Mass Index 30.38 12/08/2023 8:31 AM DIKE SUPERVISOR Plan of Treatment Not on file Procedures Procedure Name Priority Date/Time Associated Diagnosis Comments CT ABDOMEN PELVIS W CONTRAST Schedule Routine, Read Routine (OP Routine) 10/02/2024 1:10 PM DIKE SUPERVISOR HEPATITIS C ANTIBODY Routine 12/08/2023 9:13 AM DIKE SUPERVISOR Encounter for hepatitis C screening test for low risk patient PSA SCREEN Routine 12/08/2023 9:13 AM DIKE SUPERVISOR Screening for malignant neoplasm of prostate from Last 3 Months or Most Recently Relevant to Health Maintenance Results * CT Abdomen Pelvis W Contrast (10/02/2024 1:10 PM DIKE SUPERVISOR) Anatomical Region Laterality Modality Body N/A Computed Tomogra phy Chester Cox MD IM CT PROCEDURES Final Result * (ABNORMAL) PSA screen (12/08/2023 9:13 AM DIKE SUPERVISOR) PSA-Total 7.04(H) <=5.40 ng/mL [facility] Comment: [...] last revised 22. Blood 12/08/2023 9:13 AM DIKE SUPERVISOR 12/08/2023 3:00 PM DIKE SUPERVISOR Derik Rios MD LAB BLOOD ORDERABLES Final Result Performing Organization Address [facility] de Phone Number LUIS[facility] ANA [address] [place] [place] [address] * Hepatitis C antibody Blood (12/08/2023 9:13 AM DIKE SUPERVISOR) Hep C Ab Nonreactive Nonreactive ELIJAH PEREZ [...] revised on 2019. Blood 12/08/2023 9:13 AM DIKE SUPERVISOR 12/08/2023 3:00 PM DIKE SUPERVISOR Derik Rios MD LAB MICROBIOLOGY - GENERAL ORDERABLES Edited Result - Final Performing Organization Address [facility] de Phone Number ELIJAH PEREZ [id number] [place] [address] from Last 3 Months or Most Recently Relevant to Health Maintenance Insurance [facility] ACCESS CHOICE ANTHEM ACCESS CHOICE Care Teams Supervisor Diagnostic Relationship Specialty Start Date End Date Derik Rios MD [address] [place] [address] PCP - General Family Medicine 12/08/23
--- OUTSIDE RECORDS SUMMARY | 2024-11-21 02:00 | XMS_ITS | Continuity of Care Document ---
Author Organization [facility] Address [address] [place] [address] Phone Care Team Providers Care Price Accuracy Supervisor Name Role Phone Raymundo Fuentes MD Unavailable [...] Diagnoses Date Provider Providers Copied on Encounter [place], [address], [place], [place], [id number] , [place] tel: [phone] [facility] No Information [address] [facility], [address], [place], [place], [id number] , [place]. tel: [phone] [place], [address], [place], [place], [id number] , tel: [phone] [facility] No Information 0 Alfredo Fonseca. [address] [place] [address], [address], [place], [place], [id number] , . tel: [phone] [facility] [employer], [address], [place], [place], [id number] , tel: [phone] [facility] No Information 8 Alfredo Fonseca. [address] [place] [address], [address], [place], [place], [id number] , . tel: [phone] [facility] [employer], [address], [place], [place], [id number] , tel: [phone] [facility] Body mass index (BMI) 30.0-30.9, adultGastroesophageal reflux disease without esophagitisEssential hypertensionMixed hyperlipidemiaCoronar y artery disease involving [place] coronary artery of [place] heart without angina pectorisAnxietyInflue nza vaccine neededScreening PSA (prostate specific antigen)Other fatigue 8 Ghada Keys. [address] [place] [address], [address] , [place], [place], [id number] , . tel: [phone] Referring Provider: Raymundo Fuentes [address] [place] [address] [address] , [place], [address] . tel:[phone] [facility] [employer], [address], [place], [place], [id number] , tel: [phone] [facility] AnxietyEssential hypertensionHyperlipi demia, unspecified hyperlipidemia typeCoronary artery disease involving [place] coronary artery of [place] heart without angina pectoris 6 Ghada Keys. [address] [place] [address], [address], [place], [place], [id number] , . tel: [phone] Referring Provider: Raymundo Fuentes [address] [place] [address] [address], [place], [address] . tel:[phone] Family History Family Member Type Diagnosis Age At Onset Mother Problem (finding) raised blood lipids Mother Problem (finding) Blood disorder Mother Problem (finding) hypertension Mother Problem (finding) malignant neoplasm of l isi Father Problem (finding) raised blood lipids Mother Problem (finding) premature coronary hear t disease Immunizations Vaccine Date Status Comments Flublok, quadrivalent, preservative free, 0.5mL dosage administered Source: New Immuniza tion Record Payers Payer name Insurance type Covered alliance party ID Authoriza tion(s) BCBS ACCESS CHOICE [id number] [employer] ACCESS CHOICE [id number] Social History Type Description Quantity Date Captured [...]
--- OUTSIDE RECORDS SUMMARY | 2024-11-21 02:00 | XMS_ITS | Encounter Summary ---
Author Organization [facility] Address [address] [facility] [place] [address] Care Team Providers Care Family Resource Coordinator Name Role Phone Savanna Walter DO Primary Care Provider Unavailstanley e Encounter Details Date Type Department Care Team (Late st Contact Info) Description 10/07/2024 Lab Requisition [facility] - [facility]ology Lab [address] [place] [phone] Artis García MD [address] [place] [address] Illness, unspecified Social History Tobacco Use [...] unspecified documented in this encounter Care Teams Family Resource Coordinator Relationship Specialty Start Date End Date Savanna Walter DO OIG SANCTIONED!! DO NOT USE!! PCP - General 06/20/09 documented as of this encounter
--- OUTSIDE RECORDS SUMMARY | 2024-11-21 02:00 | XMS_ITS | Clinical Summary ---
Author Organization [facility] [employer] Address [address] [place] [address] Care Team Providers Care Immunology Specialist Name Role Phone Savanna Walter DO Primary Care Provider Unavailabl e Source Comments [facility] [employer],non-owned Affiliates and Associated Physician Practices is amultiple site organization consisting of ambulatory clinics and hospital sitesin [place], [place], [place] and [place]. This disclosure is being madepursuant to the Care Everywhere program and may not contain all information available regarding this patient. Last updated 18.[facility] [employer] Allergies No known active allergies Medications * [...] Department Care Team Description 10/07/2024 Lab Requisition [facility] - Pathology Lab [address] [place] [address] Artis García MD Illness, unspecified from Last [...] 1:37 PM 06/22/2009 1:11 AM Care Teams Immunology Specialist Relationship Specialty Start Date End Date Savanna Walter DO OIG SANCTIONED!! DO NOT USE!! PCP - General 06/20/09
--- OUTSIDE RECORDS SUMMARY | 2024-11-21 02:00 | XMS_ITS | Clinical Summary ---
Author Organization [facility]and[facility] Perla Address [address] [place] [address] Care Team Providers Care Air Analysis Technician Name Role Phone Unavailable Primary Care Provider [...] Description 11/10/2024 Specialty Pharmacy [facility] [address] [place] [address] [place] [address] Nayely Stewart, PHARMACIST 11/10/2024 Specialty Pharmacy [facility] [address] [place] [address] [place] [address] Nayely Stewart, PHARMACIST Specialty Pharmacy Refill Coordination 11/10/2024 Refill [facility] [address] [place] [phone] James Mackenzie MD 11/10/2024 Specialty Pharmacy [facility] [address] [place] [address] [place] [address] Nayely Stewart, PHARMACIST Specialty Pharmacy Prior Auth Coordination 11/09/2024 Orders Only [facility] [address] [place] [phone] James Mackenzie MD 11/08/2024 4:30 PM [employer] Telephone Check Up [facility] [address] [place] [phone] James Mackenzie MD Prostate cancer (CMS/HCC) (Primary Dx) 11/03/2024 External Device Data [facility] ABSTRACTION Provider, Abstract 10/26/2024 Telephone [facility] [address] [place] [address] James Mackenzie MD [facility] testing 10/25/2024 External Device Data STL ABSTRACTION Provider, Abstract 10/25/2024 External Device Data STL ABSTRACTION Provider, Abstract 10/25/2024 Orders Only [facility] [address] [place] [address] James Mackenzie MD 10/24/2024 Orders Only [facility] [address] [place] [address] James Mackenzie MD 10/19/2024 3:00 PM [employer]ANT Office Visit [facility] [address] [place] [address] James Mackenzie MD Prostate cancer (CMS/HCC) (Primary Dx); Colorectal cancer, stage IV (CMS/HCC) 10/19/2024 Orders Only [facility] [address] [place] [address] James Mackenzie MD Prostate cancer (CMS/HCC) (Primary Dx); Colorectal cancer, stage IV ([facility]/HCC) from Last 3 Months Family History [...] Comments Blood Pressure 161/91 10/19/2024 3:30 PM [employer]ANT Pulse 60 10/19/2024 3:24 PM [employer]ANT Temperature 36.6 C (97.9 F) 10/19/2024 3:24 PM [employer]ANT Respiratory Rate 16 10/19/2024 3:24 PM [employer]ANT Oxygen Saturation 95% 10/19/2024 3:24 PM [employer] CONSULTANT Inhaled Oxygen Concentration - - Weight 102.5 kg (226 lb) 10/19/2024 3:24 PM [employer] CONSULTANT Height 180.3 cm (5' 11 ) 10/19/2024 3:24 PM [employer]SULTANT Body Mass Index 31.52 10/19/2024 3:24 PM [employer] CONSULTANT Plan of Treatment Health Maintenance Due Date Last Done Comments Pre-Diabetes and Diabetes Screening 1960 ZOSTER VACCINE (1 of 2) 2012 INFLUENZA VACCINE (#1) 2024 DTAP/TDAP/TD VACCINES (2 - Td or Tdap) 12/08/2033 RSV VACCINE (60+ or ) (1 - 1-dose 75+ series) 2037 Procedures Procedure Name Priority Date/Time Associated Diagnosis Comments [facility] Routine 10/27/2024 10:08 PM [employer] Prostate cancer (CMS/HCC) Colorectal cancer, stage IV (CMS/HCC) PET TUMOR GA68 PSMA IMG W CT SKB MDTH Routine 10/25/2024 4:03 PM [employer] CONSULTANT [facility] DNA AND RNA Routine 10/19/2024 4:08 PM [employer] CONSULTANT Prostate cancer (CMS/HCC) Colorectal cancer, stage IV (CMS/HCC) [facility] NORMAL BLOOD Routine 10/19/2024 4:08 PM [employer] CONSULTANT Prostate cancer (CMS/HCC) Colorectal cancer, stage IV (CMS/HCC) CEA Routine 10/19/2024 12:56 PM [employer] CONSULTANT from Last 3 Months Results * [facility]F (10/27/2024 10:08 PM [employer] SAL[employer] CONSULTANT) Reason for Study To identify mutations relevant to patient's cancer. 10/27/2024 10:08 PM [employer] SAL[employer] CONSULTANT [facility] Genetic Diseases Assessed Cancer 10/27/2024 10:08 PM [employer] SAL[employer] CONSULTANT [facility] Description of Ranges of DNA Sequences Examined 105 gene liquid biopsy 10/27/2024 10:08 PM [employer] SAL[employer] CONSULTANT [facility] Overall Interpretation positive 10/27/2024 10:08 PM [employer] SAL[employer] CONSULTANT [facility] [email or web address] 10/27/2024 10:08 PM [employer] SAL[employer] CONSULTANT [facility] Comment:[facility] link Trial Count 1 10/27/2024 10:08 PM [employer] SAL[employer] CONSULTANT [facility]: Clinical Trial Match 1 Clinical Trial NCT ID: [id number] Clinical Trial Title: Study of ATRN-119 in Patients with Advanced Solid Tumors Clinical Trial URL: [email or web address]://clini caltrials.gov /ct2/show/NCT [email or web address] Clinical Phase: Phase 1/Phase 2 Clinical Trial Matches: 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 10/27/2024 10:08 PM [employer] SAL[employer] CONSULTANT [facility] Blood specimen (specimen) 10/21/2024 12:05 AM [employer] SAL[employer] CONSULTANT Narrative This result has genomic variants that were not included in this document. us James Mackenzie MD MOLECULAR ORDERABLES Final Resu Performing Organization Address [facility] de Phone Number [facility] [address] [facility], [address] [place] [address], [facility] [address] [facility], [address] [place] [address] * PET TUMOR GA68 ILLUCIX PSMA IMG W CT SKB MD (10/25/2024 4:03 PM [employer] SAL[employer] CONSULTANT) Anatomical Region Laterality Modality Other us James Mackenzie MD PE ORDERABLES Final Result * [facility] NORMAL BLOOD (10/19/2024 4:08 PM COMMERCIAL [employer] SALES CONSULTANT) [facility] 10/19/2024 11:00 PM [employer] SALES CONSULTANT [facility] Comment:See NGS Report for R esults. Blood specimen (specimen) 10/19/2024 4:08 PM [employer] SALES CONSULTANT 10/19/2024 4:09 PM [employer] SALES CONSULTANT us James Mackenzie MD MOLECULAR ORDERABLES Final Resu lt Performing Organization Address [facility] de Phone Number [facility] [address] [facility], [address] [place] [address], [facility] [address], [address] [place] [address] * CEA (10/19/2024 12:56 PM [employer] SAL[employer] CONSULTANT) Blood James Mackenzie MD CHEMISTRY ORDERABLES Final Resu lt from Last 3 Months Insurance [facility] BLUE ACCESS CHOICE [employer]
[2024-11-21 09:33] VITALS: BP 140/69; PULSE 51; RESP 18; TEMP 36.6; O2SAT 99
[2024-11-21] MEDS: LACTATED RINGERS 1,000 ML 30 ML IV CONT (09:50)
--- NOTE | 2024-11-21 11:21 | WPDANESEPPF ---
Anes - Initial Pre Proc Eval Procedure: Operation Date: 11/21/24 11:30 Proposed Procedures p Insertion Siria Cath - Lonny Auguste MD Date/Time: 11/21/24 11:21 Surgeon: Lonny Auguste MD Pre Op Diagnosis: Prostate Ca Patient Data Age: 64 Gender: M Height: 1.83 m Weight: 99.6 kg Last Vital Signs Temp 97.8 F 11/21/24 09:33 Pulse 51 L 11/21/24 09:33 Resp 18 11/21/24 09:33 BP 140/69 11/21/24 09:33 Pulse Ox 99 11/21/24 09:33 O2 Del Method Room Air 11/21/24 09:33 Allergies Allergy/AdvReac Type Severity Reaction Status Date / Time No Known Allergies Allergy Verified 11/21/24 10:09 Home Medications ?Medication ?Instructions ?Recorded ?Confirmed ?Type amlodipine 10 mg tablet 10 mg PO QHS 07/06/24 11/21/24 History aspirin 81 mg chewable tablet 81 mg PO QHS 07/06/24 11/21/24 History lisinopril 40 mg tablet 40 mg PO QHS 07/06/24 11/21/24 History rosuvastatin 40 mg tablet 40 mg PO QHS 07/06/24 11/21/24 History sertraline 50 mg tablet 50 mg PO QHS 07/06/24 11/21/24 History omega 5-grx-ztw-fish oil 1,000 mg 1 cap PO BID 10/02/24 11/21/24 History (120 mg-180 mg) capsule (Fish Oil) bicalutamide 50 mg tablet 50 mg PO HS 11/15/24 11/21/24 History Patient hx anesthesia problems: none Family hx anesthesia problems: none Results Review: All pre-operative results and documents have been reviewed as part of the pre-operative evaluation. [facility] Past Medical History Medical History Anemia Change in stool caliber Abnormal CT scan, colon No pertinent past medical history Surgical History Surgical History No pertinent past surgical history Family History Family History Mother Family history non-contributory Social History Social History Smoking status: Never smoker Alcohol intake: current Substance use: never Do You Feel Safe in your Home?: Yes Lack of Transportation: No Lack of Food: Never True Current Housing: I Have Housing Concerned About Future Housing: No Difficulty Paying Gas/Electric Bills: No Difficulty Paying for Meds: No Currently Unemployed: No Education: High School Diploma/GED Difficulty w/ Childcare or Family Care: No Living arrangements: with family Gender identity (if verbalized by the patient): Male Spiritual care concerns: No Anes - Eval Final PreProcedure Day of Procedure 11/21/24 11:21 Patient weight: obese Heart: regular rate and rhythm Lungs: clear to auscultation Airway: Mallampati scale and special considerations (L upper incisor noted w large chip/grounded down sig. ) Neurological: alert and oriented Last oral intake: >/= 8 hours ASA classification: III Emergent: no Anesthetic plan: proceed Anesthesia type and monitoring: general LMA and standard monitoring Results Review: All pre-operative results and documents have been reviewed as part of the pre-operative evaluation. HTN, hyperlipidemia, RLS, prostate ca w mets. Informed Consent: The patient's anesthetic plan and its attendant risks and benefits were discussed with the patient/family/POA. Questions were solicited and answers provided to the satisfaction of the patient/family/POA.
--- NOTE | 2024-11-21 11:22 | P.HP_ITS ---
H&P: HPI History of Present Illness Date/Time: 11/21/24 11:22 Chief Complaint: Metastatic prostate CA Narrative: Pt with metastatic prostate CA. He is to have chemo tx. No prior port placement. Review of Systems Review of Systems: The remainder of the review of systems to include constitutional, HEENT, cardiovascular, respiratory, GI, , integumentary, musculoskeletal, endocrine, immunologic, hematologic, psychiatric, and neurologic are all negative except for which is mentioned above in the HPI. [facility] Past Medical History Medical History Anemia Change in stool caliber Abnormal CT scan, colon No pertinent past medical history Surgical History Surgical History No pertinent past surgical history Family History Family History Mother Family history non-contributory Social History Social History Smoking status: Never smoker Alcohol intake: current Substance use: never Do You Feel Safe in your Home?: Yes Lack of Transportation: No Lack of Food: Never True Current Housing: I Have Housing Concerned About Future Housing: No Difficulty Paying Gas/Electric Bills: No Difficulty Paying for Meds: No Currently Unemployed: No Education: High School Diploma/GED Difficulty w/ Childcare or Family Care: No Living arrangements: with family Gender identity (if verbalized by the patient): Male Spiritual care concerns: No Meds Home Medications and Allergies Home Medications ?Medication ?Instructions ?Recorded ?Confirmed ?Type amlodipine 10 mg tablet 10 mg PO QHS 07/06/24 11/21/24 History aspirin 81 mg chewable tablet 81 mg PO QHS 07/06/24 11/21/24 History lisinopril 40 mg tablet 40 mg PO QHS 07/06/24 11/21/24 History rosuvastatin 40 mg tablet 40 mg PO QHS 07/06/24 11/21/24 History sertraline 50 mg tablet 50 mg PO QHS 07/06/24 11/21/24 History omega 5-lps-gso-fish oil 1,000 mg 1 cap PO BID 10/02/24 11/21/24 History (120 mg-180 mg) capsule (Fish Oil) bicalutamide 50 mg tablet 50 mg PO HS 11/15/24 11/21/24 History Allergies Allergy/AdvReac Type Severity Reaction Status Date / Time No Known Allergies Allergy Verified 11/21/24 10:09 Vital Signs Vital Signs - 24 hr 11/21/24 09:33 Temperature 36.6 C Pulse Rate 51 L Respiratory Rate 18 Blood Pressure 140/69 Pulse Oximetry 99 Oxygen Delivery Room Air Exam Const: General: comfortable and no acute distress HENMT: Ears: TM's normal bilaterally Face/Nose/Sinus: Normal nares present Mouth: Yes moist mucous membranes Eyes: General: appearance normal, both eyes and all related structures Sclera: sclerae normal Pupils: Equal, round and reactive pupils present EOM: EOMs intact bilaterally Neck: Neck: supple and no JVD Chest: Other: Clavicles symmetric. No rashes on chest wall. Resp: Effort & Inspection: normal respiratory effort Auscultation: clear to auscultation bilaterally Cardio: Rate: regular rate Rhythm: regular rhythm GI: GI Palp: Yes Soft to palpation, No Firmness to palpation present (GI), No Tenderness to palpation present (GI), No Guarding due to palpation present (GI) and No Hernia present Skin: General skin exam: normal color and no rashes or lesions noted Neuro: General: gait normal Speech: normal speech Motor exam (neuro): 5/5 motor strength present throughout Sensory Exam: normal sensation Extrem: General: normal to inspection Psych: Mental Status: mental status grossly normal Affect: normal affect Assessment and Plan Assessment and plan (1) Prostate cancer: Code(s): C61 - Malignant neoplasm of prostate Status: Acute Assessment and Plan: Pt presents for placement of portacatheter for starting chemo tx. Proceed to OR for port placement today. Risks, benefits, indications, and expected outcomes were discussed in detail with the patient and/or family. They understand and I have answered all other questions. They wished to proceed with surgery as outlined above. Specific risk of iatrogenic pneumothorax needing placement of chest tube or bleeding needing blood transfusion discussed. They wish to proceed.
--- NOTE | 2024-11-21 11:31 | WPDHPUPDATE1 ---
History and Physical Update Update Date/Time: 11/21/24 11:31 History and Physical has been reviewed, including an updated exam of the patient. There are NO changes in the patient's condition. Risks, benefits, and alternatives have been discussed and questions answered. Patient agrees to proceed with procedure.
[2024-11-21] MEDS: ceFAZolin 2 GM/D5W 50 ML 2 GM/50 ML BAG IVPB (12:00)
[2024-11-21] MEDS: BUPivacaine HCL 0.5% PF 30 ML VIAL INFILTRATE (12:03)
[2024-11-21] MEDS: HEPARIN SODIUM 5,000 UNITS/ML VIAL 1000 UNITS IRRIGATION (12:05)
[2024-11-21] MEDS: HEPARIN SODIUM 5,000 UNITS/ML VIAL 5000 UNITS IRRIGATION (12:06)
[2024-11-21] MEDS: LIDO 1%/EPINEPHRINE 1:100,000 20 ML VIAL 7 ML INFILTRATE (12:26)
[2024-11-21 12:36] VITALS: BP 112/73; PULSE 55; O2SAT 100
--- NOTE | 2024-11-21 12:42 | W.PM.PROC2 ---
Procedure Note - Detailed Date of Procedure 11/21/24 Pre-op Diagnosis Metastatic Prostate Ca Post-op Diagnosis Same Procedure Performed Placement of right subclavian vein single-lumen port a catheter with intraoperative fluoroscopy. Surgeon Lonny Auguste MD Anesthesia General Indications Patient is a 64-year-old gentleman who has metastatic prostate cancer. He is to undergo chemotherapy treatments. He presents for placement of ze catheter today. Findings None significant Description of Procedure After informed consent was obtained patient brought to the operating room was placed supine position and then general LMA anesthesia was administered. The bilateral upper anterior chest and neck was then prepped and draped usual sterile fashion. A time-out was then performed correctly identifying the patient as well as procedure to be performed. He was given perioperative IV antibiotics. I 1st started by anesthetizing the area just below the medial 3rd of the right clavicle on the upper right chest wall with the mixture of 1% lidocaine mixed with 0.5% Marcaine local anesthetic. A transverse incision was then made this area the scalpel dissection carried down through the subcutaneous tissues to reach the anterior pectoralis fascia. I then created a subcutaneous pocket underneath the incision superficial to the pectoralis major fascia with blunt finger electrocautery dissection. I then had the patient placed in head-down Trendelenburg position. A long 18gauge spinal needle was then used to cannulate the right subclavian vein on the 2nd pass through the incision. There was return of dark venous appearing blood. A guidewire was advanced through the needle into the right subclavian vein subsequent down into the superior vena cava. Intraoperative fluoroscopy was then used to confirm the proper placement of the tip of the guidewire. I then proceeded to advanced a dilator breakaway sheath over the guidewire. The guidewire and dilator were removed leaving the sheath in place. A 9.6 [place] single-lumen silastic catheter was advanced through the sheath into the right subclavian vein and subsequent down into the right atrium of the heart. Intraoperative fluoroscopy was then used once more to visualize the tip of the catheter and then with traction on the catheter externals the chest wall I pulled back into the tip of the catheter was in the distal superior vena cava. The catheter was then cut to the appropriate length the skin level and attached to the titanium Smart Port. The port was then secured the subcutaneous port pocket utilizing 3-0 Prolene sutures at 3 sites. I then irrigated out the port with sterile saline solution hemostasis was good. Accessed the port with the Escudero needle and it aspirated blood easily and was flushed with heparinized saline solution. The incision was then closed utilizing interrupted 3-0 Vicryl sutures in the subcutaneous tissues. The skin edges were approximated utilizing a running subcuticular 4-0 Monocryl suture. I then accessed the port percutaneously and again aspirated blood easily. I then flushed with 5000units of IV heparin. The incision was then dressed with skin glue. The patient tolerated the procedure well no complications. All sponges, needles, and instrument counts were correct at the end procedure. EBL was _20__cc. The patient was awakened and taken to recovery in stable and satisfactory condition. Implants 9.6 [place] Islander wound silastic catheter attached to titanium Smart Port placed via the right subclavian vein. Estimated Blood Loss 20 Drains No Packing No Pathology None sent Complications No immediate complications Condition Stable Disposition PACU [facility] Billing Surgery - Charge Forward: Surgery Billing
[2024-11-21 13:05] VITALS: BP 111/65; PULSE 41; O2SAT 96
[2024-11-21 13:35] VITALS: BP 107/65; PULSE 41; O2SAT 95
[2024-11-21 14:05] VITALS: BP 129/74; PULSE 42
[2024-11-21 14:35] VITALS: BP 146/69; PULSE 50
== END 2024-11-21 14:48 | disposition home or self-care (01) ==
PROVIDERS: PCP Family Medicine; Visit Provider Surgery
PROC: (CPT 36561; principal; 2024-11-21 11:30)
DX: C61 Malignant neoplasm of prostate (principal)
CPT/HCPCS: 36561; 77001; C1788; J0690; J1100; J1644; J2003; J2004; J2250; J2405; J2704; J3010; J7040; J7120

== ENCOUNTER 2025-04-06 09:28 | Outpatient (CLI) | payer BC, SELFPAY ==
--- NOTE | ~2025-04-06 | CT_ITS ---
Clinical Indication: Prostate cancer CT Scan of the Chest, Abdomen, and Pelvis with Contrast: Technique: Contiguous sections were acquired throughout the chest, abdomen, and pelvis after intraven ous administration of 100 cc of Omnipaque 350. Dose reduction technique was used on this scan by paul mendiolaing automated exposure control and iterative reconstruction technique. The dose-length product (DL P) was 1314.32 mGy-cm. Comparison: 10/02/2024 Findings: There is no evidence of any significant mediastinal, hilar or axillary lymphadenopathy. The mediastin al soft tissues and vascular structures appear normal. There is no evidence of pleural or pericardial effusion. There is scarring at the anteromedial right middle lobe. No suspicious pulmonary nodule seen. The liver, spleen, pancreas, gallbladder, and adrenal glands are within normal limits. Bilateral july l cysts noted. No evidence of aortic aneurysm. Retroperitoneal and common/external iliac chain lymph nodes are significantly decreased in size from prior exam.. There is decreased wall thickening of the left side of the rectum distally. No bowel obstruction. Urinary bladder is unremarkable. No pelvic mass evident. Impression: Significant interval decrease in size of retroperitoneal and common/external iliac chain lymph nodes, compatible with partial response to therapy. Decreased wall thickening in the left side of the distal rectum. This could also reflect partial resp onse to therapy. Reviewed, dictated and finalized at location . Impression: Significant interval decrease in size of retroperitoneal and common/external il iac chain lymph nodes, compatible with partial response to therapy. Decreased wall thickening in the left side of the distal rectum. This could als o reflect partial response to therapy.
== END 2025-04-06 09:29 | disposition home or self-care (01) ==
PROVIDERS: Visit Provider Internal Medicine Hematology & Oncology
DX: C61 Malignant neoplasm of prostate (principal); C19 Malignant neoplasm of rectosigmoid junction
CPT/HCPCS: 71260; 74177; Q9967